=== PATIENT | male | born 1985 | race Caucasian/White ===

== ENCOUNTER 2023-10-27 19:09 | Inpatient (IN) | payer MEDICAID, OTHER ==
[~2023-10-27] VITALS: Ht 185.4 cm; Wt 119.0 kg
[2023-10-27 20:31] LABS: Basophils # (auto) 0.1 10 ^3/uL (0-0.2); Basophils % (auto) 0.6 % (0.0-2.0); Eosinophils # (auto) 0.1 10 ^3/uL (0-0.8); Eosinophils % (auto) 0.8 % (0.0-7.0); Hematocrit 42.9 % (41.0-53.0); Hemoglobin 14.3 g/dL (13.5-17.5); Lymphocytes # (auto) 3.2 10 ^3/uL (0.4-5.4); Lymphocytes % (auto) 29.6 % (10.0-50.0); Mean Corpuscular Hemoglobin 30.6 pg (28.0-32.0); Mean Corpuscular Hgb Conc. 33.4 g/dL (32.0-36.0); Mean Corpuscular Volume 91.5 fL (80.0-100.0); Monocytes % (auto) 9.2 % (0.0-12.0); Neutrophils # (auto) 6.5 10 ^3/uL (1.6-8.6); Neutrophils % (auto) 59.8 % (37.0-80.0); Nucleated Red Blood Cells % 0.1 %; Red Blood Cells 4.69 10^6/uL (4.5-5.90); Red Cell Distribution Width 15.3 % (11.8-14.3); White Blood Cell 10.9 10^3/uL (4.4-10.8)
[2023-10-27 20:54] LABS: Alanine Aminotransferase 15 U/L (7-40); Albumin 4.4 g/dL (3.2-4.8); Alkaline Phosphatase 96 U/L (46-116); Anion Gap 9 (5-15); Aspartate Aminotransferase 17 U/L (13-40); BUN/Creatinine Ratio 11.4 (10.0-20.0); Blood Urea Nitrogen 13 mg/dL (9-23); Calcium 9.2 mg/dL (8.5-10.1); Carbon Dioxide 26 mmol/L (20-30); Chloride 104 mmol/L (98-107); Glucose 110 mg/dL (74-106); Potassium 3.4 mmol/L (3.5-5.1); Sodium 139 mmol/L (136-145)
[2023-10-27 20:55] LABS: Bilirubin, Total 1.3 mg/dL (0.2-1.0); Total Protein 7.3 g/dL (5.7-8.2)
[2023-10-27 20:59] LABS: INR 1.06 (0.9-1.15); Partial Thromboplastin Time 27.3 SEC (24.5-34.5); Prothrombin Time 11.1 sec (9.3-11.8)
[2023-10-27] MEDS ORDERED: FUROSEMIDE 100 MG/10ML VIAL IM ONE (21:00)
[2023-10-28] VITALS (9 sets, daily range): BP systolic 91–117; BP diastolic 48–76; PULSE 65–113; RESP 16–21; TEMP 36.3; O2SAT 91–98
[2023-10-28] MEDS ORDERED: FUROSEMIDE 100 MG/10ML VIAL IV ONE
[2023-10-28] MEDS: FUROSEMIDE 40 MG/4 ML VIAL IV ONE (00:52)
[2023-10-28] MEDS ORDERED: TEMAZEPAM 15 MG CAP PO PRN (01:00)
[2023-10-28] MEDS ORDERED: MORPHINE SULFATE INJ 2 MG/ml SYRG IV PRN (01:00)
[2023-10-28] MEDS ORDERED: ONDANSETRON HCL 4 MG/2 ML VIAL IV PRN (01:00)
[2023-10-28] MEDS ORDERED: NITROGLYCERIN 0.4 MG SL TAB SL PRN (01:00)
[2023-10-28] MEDS: POTASSIUM CHL 20 Meq TABLET PO ONE (01:11)
[2023-10-28 01:47] LABS: Urine Bacteria NONE SEEN /hpf (None Seen); Urine Blood Negative /uL (Negative); Urine Clarity Clear (Clear); Urine Color Yellow (Yellow); Urine Mucus FEW (None Seen); Urine Protein, UAD Negative (Negative); Urine Specific Gravity 1.017 (1.001-1.035); Urine Urobilinogen Normal (Negative); Urine WBC 1 /hpf (0 - 3); Urine pH 5.5 (5.0-8.0)
[2023-10-28] MEDS ORDERED: FURO40TA4 PO (03:13)
[2023-10-28] MEDS: FUROSEMIDE 20 MG/2 ML VIAL IV SCH (06:42)
[2023-10-28 07:44] LABS: Amphetamine Screen, Urine Pos (NEGATIVE); Barbiturate Scree,Urine Neg (NEGATIVE); Benzodiazephine Screen, Urine Neg (NEGATIVE); Cocaine Screen, Urine Neg (NEGATIVE); Opiate Scree,Urine Neg (NEGATIVE)
[2023-10-28 07:45] LABS: Cannabinoid Screen, Urine Neg (NEGATIVE); Phencyclidine Screen, Urine Neg (NEGATIVE)
[2023-10-28 09:13] LABS: Basophils # (auto) 0.1 10 ^3/uL (0-0.2); Basophils % (auto) 0.8 % (0.0-2.0); Eosinophils # (auto) 0.2 10 ^3/uL (0-0.8); Eosinophils % (auto) 1.9 % (0.0-7.0); Hematocrit 43.4 % (41.0-53.0); Hemoglobin 14.2 g/dL (13.5-17.5); Lymphocytes # (auto) 2.2 10 ^3/uL (0.4-5.4); Lymphocytes % (auto) 26.8 % (10.0-50.0); Mean Corpuscular Hemoglobin 30.8 pg (28.0-32.0); Mean Corpuscular Hgb Conc. 32.6 g/dL (32.0-36.0); Mean Corpuscular Volume 94.4 fL (80.0-100.0); Monocytes # (auto) 0.6 10 ^3/uL (0-1.3); Neutrophils # (auto) 5.2 10 ^3/uL (1.6-8.6); Neutrophils % (auto) 63.5 % (37.0-80.0); Nucleated Red Blood Cells % 0.1 %; Red Cell Distribution Width 15.3 % (11.8-14.3); White Blood Cell 8.1 10^3/uL (4.4-10.8)
[2023-10-28 09:26] LABS: Anion Gap 6 (5-15); Carbon Dioxide 29 mmol/L (20-30); Chloride 105 mmol/L (98-107); Potassium 4.7 mmol/L (3.5-5.1); Sodium 140 mmol/L (136-145)
[2023-10-28 09:27] LABS: Calcium 9.3 mg/dL (8.5-10.1)
[2023-10-28 09:32] LABS: BUN/Creatinine Ratio 10.7 (10.0-20.0); Blood Urea Nitrogen 12 mg/dL (9-23); Glucose 182 mg/dL (74-106); Triglycerides 128 mg/dL (< 150)
[2023-10-28 09:33] LABS: LDL Cholesterol 109 mg/dL (< 100)
[2023-10-28 09:34] LABS: Cholesterol 152 mg/dL (< 200); HDL Cholesterol 34 mg/dL (40-59)
[2023-10-28] MEDS: SPIRONOLACTONE 25 MG TAB PO SCH (10:10)
[2023-10-28 10:21] LABS: Magnesium 2.2 mg/dL (1.6-2.6)
[2023-10-28] MEDS ORDERED: SPIR25TA8 PO (10:46)
[2023-10-28 11:19] LABS: COVID19 ANTIGEN SOFIA FIA NEGATIVE (NEGATIVE)
[2023-10-28 11:20] LABS: Rapid Influenza A Negative (Negative); Rapid Influenza B Negative (Negative)
== END 2023-10-28 21:51 | disposition left against medical advice (07) | DRG 133 ==
LOC: ER 19:09 → TELE 10-28 00:55 → TELE-CENTR 10-28 00:55
PROVIDERS: ADMIT Nurse Practitioner; ATTEND Family Medicine
DX: J96.01 Acute respiratory failure with hypoxia (principal); I21.A1 Myocardial infarction type 2; I50.23 Acute on chronic systolic (congestive) heart failure; I42.7 Cardiomyopathy due to drug and external agent; I11.0 Hypertensive heart disease with heart failure; F15.10 Other stimulant abuse, uncomplicated; E87.6 Hypokalemia; T50.2X6A Underdosing of carbonic-anhydrase inhibitors, benzothiadiazides and other diuretics, initial encounter; Z20.822 Contact with and (suspected) exposure to COVID-19; T50.995A Adverse effect of other drugs, medicaments and biological substances, initial encounter; Y92.098 Other place in other non-institutional residence as the place of occurrence of the external cause; Z71.51 Drug abuse counseling and surveillance of drug abuser; Z87.891 Personal history of nicotine dependence; Z71.6 Tobacco abuse counseling; Z53.29 Procedure and treatment not carried out because of patient's decision for other reasons; Z79.899 Other long term (current) drug therapy; Z90.49 Acquired absence of other specified parts of digestive tract; I08.8 Other rheumatic multiple valve diseases
CPT/HCPCS: 36415; 71045; 80048; 80053; 80061; 80307; 81001; 83036; 83735; 83880; 84443; 84484; 85025; 85379; 85610; 85730; 87081; 87426; 87804; 93306; 93971; 96374; G0378

== ENCOUNTER 2024-07-13 18:20 | Inpatient (IN) | payer OTHER ==
[~2024-07-13] VITALS: Ht 182.9 cm; Wt 122.8 kg
[~2024-07-13 18:20] MED LIST: FURO40TA4 PO; SPIR25TA8 PO
--- NOTE | 2024-07-13 18:30 | ED.PDOC ---
History of Present Illness HPI Comments 39-year-old male with PMHX CHF presents with a chief complaint of chest pain x 45 minutes with associated nausea and vomiting. Patient states that his chest pain is localized to his sternal region, radiating to his upper back and rates his pain an 8/10. Patient mentions that he was just recently diagnosed with CHF. Patient denies any SOB at this time. No active vomiting in triage. No other symptoms or modifying factors present at this time. Chief Complaint: Chest Pain Time Seen by MD: 18:25 Primary Care Provider: RENZO Reviewed Notes: Medications, Allergies Allergies: Coded Allergies: NO KNOWN ALLERGIES (Unverified , 09/13/11) Home Meds Reported Medications Spironolactone (Spironolactone) 25 Mg Tab, 12.5 MG PO DAILY 10/28/23 Furosemide (Furosemide) 40 Mg Tab, 1 TAB PO BID 10/28/23 Information Source: Patient Mode of Arrival: Ambulatory Severity: Moderate Timing: Minutes Duration: Since onset Prehospital treatment: None Past Medical History PAST MEDICAL HISTORY: CHF Surgical History: Cholecystectomy Family History Family History: Unknown Social History Smoker: Cigarettes Alcohol: Denies ETOH Use Drugs: Denies Drug Use Lives In: Home Constitutional: denies: chills, diaphoresis, fatigue, fever, malaise, sweats, weakness, others EENTM: denies: blurred vision, double vision, ear bleeding, ear discharge, ear drainage, ear pain, ear ringing, eye pain, eye redness, hearing loss, mouth pain, mouth swelling, nasal discharge, nose bleeding, nose congestion, nose pain, photophobia, tearing, throat pain, throat swelling, voice changes, others Respiratory: denies: cough, hemoptysis, orthopnea, SOB at rest, shortness of breath, SOB with excertion, stridor, wheezing, others Cardiovascular: reports: chest pain; denies: dizzy spells, diaphoresis, Dyspnea on exertion, edema, irregular heart beat, left arm pain, lightheadedness, palpitations, PND, syncope, others Gastrointestinal: reports: nausea, vomiting; denies: abdomen distended, abdominal pain, blood streaked bowels, constipated, diarrhea, dysphagia, difficulty swallowing, hematemesis, melena, poor appetite, poor fluid intake, rectal bleeding, rectal pain, others Genitourinary: denies: burning, dysuria, flank pain, frequency, hematuria, incontinence, penile discharge, penile sore, pain, testicle pain, testicle swelling, urgency, others Neurological: denies: dizziness, fainting, headache, left sided numbness, left sided weakness, numbness, paresthesia, pre-existing deficit, right sided numbness, right sided weakness, seizure, speech problems, tingling, tremors, weakness, others Musculoskeletal: denies: back pain, gout, joint pain, joint swelling, muscle pain, muscle stiffness, neck pain, others Integumetry: denies: bruises, change in color, change in hair/nails, dryness, laceration, lesions, lumps, rash, wounds, others Allergic/Immunocompromised: denies: Difficulty Healing, Frequent Infections, Hives, Itching, others Hematologic/Lymphatic: denies: anemia, blood clots, easy bleeding, easy b ruising, swollen glands, others Endocrine: denies: excessive hunger, excessive sweating, excessive thirst, excessive urination, flushing, intolerance to cold, intolerance to heat, unexplained weight gain, unexplained weight loss, others Psychiatric: denies: anxiety, bipolar disorder, depression, hopeless, panic disorder, schizophrenia, sleepless, suicidal, others All Other Systems: Reviewed and Negative Physical Exam General Appearance: No Apparent Distress, Normal HEENT: Normal ENT Inspection, Pharynx Normal, TMs Normal Neck: Full Range of Motion, Non-Tender, Normal, Normal Inspection Respiratory: Chest Non-Tender, Lungs Clear, No Accessory Muscle Use, No Respiratory Distress, Normal Breath Sounds Cardiovascular: No Edema, No JVD, No Murmur, No Gallop, Normal Peripheral Pulses, Regular Rate/Rhythm Breast Exam: Deferred Gastrointestinal: No Organomegaly, Non Tender, No Pulsatile Mass, Normal Bowel Sounds, Soft Genitalia: Deferred Pelvic: Deferred Rectal: Deferred Extremities: No calf tenderness, Normal capillary refill, Normal inspection, Normal range of motion, Non-tender, No pedal edema Musculoskeletal : Apperance: Normal 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 Was a procedure done?: No Differential Dx Considerations may include: ACS, CVA, musculoskeletal strain, pneumonia, X-Ray, Labs, Meds, VS Vital Signs Date Time Temp Pulse Resp B/P (MAP) Pulse Ox O2 Delivery O2 Flow Rate FiO2 07/13/24 21:21 110 07/13/24 20:00 Nasal Cannula* 2 28 07/13/24 20:00 97.6 110 18 136/80 (98) 99 97.6 07/13/24 19:28 114 07/13/24 18:37 98.3 127 24 146/76 (99) 98 07/13/24 18:28 123 Lab Test 07/13/24 21:19 07/13/24 19:20 07/13/24 18:26 Range/Units Troponin I High Sensitivity 31 33 35 </=54 ng/L White Blood Count 6.5 4.4-10.8 10^3/uL Red Blood Count 4.56 4.5-5.90 10^6/uL Hemoglobin 11.6 L 13.5-17.5 g/dL Hematocrit 36.9 L 41.0-53.0 % Mean Corpuscular Volume 81.0 80.0-100.0 fL Mean Corpuscular Hemoglobin 25.4 L 28.0-32.0 pg Mean Corpuscular Hemoglobin Concent 31.3 L 32.0-36.0 g/dL Red Cell Distribution Width 21.5 H 11.8-14.3 % Platelet Count 261 140-450 10^3/uL Mean Platelet Volume 7.7 6.9-10.8 fL Neutrophils (%) (Auto) 64.4 37.0-80.0 % Lymphocytes (%) (Auto) 22.1 10.0-50.0 % Monocytes (%) (Auto) 11.9 0.0-12.0 % Eosinophils (%) (Auto) 0.9 0.0-7.0 % Basophils (%) (Auto) 0.7 0.0-2.0 % Neutrophils # (Auto) 4.2 1.6-8.6 10 ^3/uL Lymphocytes # (Auto) 1.4 0.4-5.4 10 ^3/uL Monocytes # (Auto) 0.8 0-1.3 10 ^3/uL Eosinophils # (Auto) 0.1 0-0.8 10 ^3/uL Basophils # (Auto) 0 0-0.2 10 ^3/uL Nucleated Red Blood Cells 0.2 % Sodium Level 137 136-145 mmol/L Potassium Level 3.4 L 3.5-5.1 mmol/L Chloride Level 98 98-107 mmol/L Carbon Dioxide Level 29 20-31 mmol/L Anion Gap 10 5-15 Blood Urea Nitrogen 8 L 9-23 mg/dL Creatinine 0.90 0.700-1.30 mg/dL Glomerular Filtration Rate Calc 111 >90 mL/min BUN/Creatinine Ratio 8.9 L 10.0-20.0 Serum Glucose 101 74-106 mg/dL Calcium Level 9.7 8.7-10.4 mg/dL Total Bilirubin 3.0 H 0.2-1.0 mg/dL Aspartate Amino Transferase (AST) 27 13-40 U/L Alanine Aminotransferase (ALT) 29 7-40 U/L Alkaline Phosphatase 130 H 46-116 U/L Total Protein 7.2 5.7-8.2 g/dL Albumin 3.9 3.2-4.8 g/dL Current Medications Medications (Trade) Dose Ordered Sig/Anat Route Start Time Stop Time Status Last Admin Lorazepam (Ativan Tablet) 0.5 mg ONCE ONCE PO 07/13/24 18:30 07/13/24 18:31 DC 07/13/24 20:06 Ondansetron HCl (Zofran Po) 4 mg ONCE ONCE PO 07/13/24 18:30 07/13/24 18:31 DC 07/13/24 20:05 Famotidine (Pepcid Tablet) 20 mg ONCE ONCE PO 07/13/24 18:30 07/13/24 18:31 DC 07/13/24 20:05 Time of 1ST Reevaluation: 18:55 Reevaluation 1ST: Unchanged Patient Education/Counseling: Diagnosis, Treatment, Prognosis Family Education/Counseling: No Family Present Departure 1 Departure Time of Disposition: 23:31 (Patient presented with chest pain that was concerning for possible STEMI, ACS, PE, Pneumonia, Muscle Strain, COPD, Dissection. Data: 1. I ordered and reviewed the result of at least 3 labs including a CBC, BMP, and Troponin. 2. I independently interpreted the following tests: EKG which shows sinus tachycardia and Chest X-ray which shows benign chest.Risk:This patient has a high risk of morbidity due to further diagnostic testing or treatment and may suffer from an acute cardiac or respiratory disorder. Workup reveals concern for acs and patient should be admitted for further workup and possible expert consultation. ) Impression: Primary Impression: Acute chest pain Additional Impressions: Nausea and vomiting Qualified Codes: R11.12 - Projectile vomiting Polysubstance abuse Disposition: 09 ADMITTED INPATIENT Admit to: Med Surg Condition: Serious Critical Care Note Critical Care Time?: Yes Critical care comment: Acute chest pain Authorized and Performed by: Caden Caldwell MD Total critical care time: Approximately 38 minutes Due to a high probability of clinically significant, life threatening deterioration, the patient required my highest level of preparedness to intervene emergently and I personally spent this critical care time directly and personally managing the patient. This critical care time included obtaining a history; examining the patient; pulse oximetry; ordering and review of studies; arranging urgent treatment with development of a management plan; evaluation of patient's response to treatment; frequent reassessment; and, discussions with other providers. This critical care time was performed to assess and manage the high probability of imminent, life-threatening deterioration that could result in multi-organ failure. It was exclusive of separately billable procedures and treating other patients and teaching time. Please see my other sections and the rest of the note for further information on patient assessment and treatment. Stability Stability form required: No Heart Score Heart Score: Heart Score Response (Comments) Value History Moderate Suspicious 1 EKG Repolarization Disturb 1 Age <45 0 Risk Factors 1 or 2 risk factors 1 Troponin 1-2 x's Normal limit 1 Total 4 I personally scribed for CADEN CALDWELL MD ([email or web address]) on 07/13/24 at 18:30. Electronically submitted by Marquise Gonzalez ([email or web address]). CADEN CALDWELL MD Jul 13, 2024 18:30
[2024-07-13 18:58] LABS: Basophils # (auto) 0 10 ^3/uL (0-0.2); Basophils % (auto) 0.7 % (0.0-2.0); Eosinophils # (auto) 0.1 10 ^3/uL (0-0.8); Eosinophils % (auto) 0.9 % (0.0-7.0); Hematocrit 36.9 % (41.0-53.0); Hemoglobin 11.6 g/dL (13.5-17.5); Lymphocytes # (auto) 1.4 10 ^3/uL (0.4-5.4); Lymphocytes % (auto) 22.1 % (10.0-50.0); Mean Corpuscular Hemoglobin 25.4 pg (28.0-32.0); Mean Corpuscular Hgb Conc. 31.3 g/dL (32.0-36.0); Monocytes # (auto) 0.8 10 ^3/uL (0-1.3); Monocytes % (auto) 11.9 % (0.0-12.0); Neutrophils # (auto) 4.2 10 ^3/uL (1.6-8.6); Neutrophils % (auto) 64.4 % (37.0-80.0); Nucleated Red Blood Cells % 0.2 %; Platelet Count (auto) 261 10^3/uL (140-450); Red Blood Cells 4.56 10^6/uL (4.5-5.90); White Blood Cell 6.5 10^3/uL (4.4-10.8)
[2024-07-13 19:01] LABS: Red Cell Distribution Width 21.5 % (11.8-14.3)
[2024-07-13 19:09] LABS: Alanine Aminotransferase 29 U/L (7-40); Albumin 3.9 g/dL (3.2-4.8); Anion Gap 10 (5-15); Aspartate Aminotransferase 27 U/L (13-40); BUN/Creatinine Ratio 8.9 (10.0-20.0); Calcium 9.7 mg/dL (8.7-10.4); Carbon Dioxide 29 mmol/L (20-31); Chloride 98 mmol/L (98-107); Glucose 101 mg/dL (74-106); Sodium 137 mmol/L (136-145)
[2024-07-13 19:10] LABS: Total Protein 7.2 g/dL (5.7-8.2)
[2024-07-13 19:16] LABS: Alkaline Phosphatase 130 U/L (46-116); Blood Urea Nitrogen 8 mg/dL (9-23); Potassium 3.4 mmol/L (3.5-5.1)
[2024-07-13] MEDS: FAMOTIDINE 20 MG TAB PO ONE (20:05)
[2024-07-13] MEDS: ONDANSETRON ODT 4 MG TAB PO ONE (20:05)
[2024-07-13] MEDS: LORazepam 0.5 MG TAB PO ONE (20:06)
--- NOTE | 2024-07-13 20:54 | DVH ---
CHEST RADIOGRAPH Indication: chest pain Technique: Frontal and lateral view of the chest was obtained Comparison: None FINDINGS: Lines and Tubes: None Lungs: Clear Pleura: No effusion. No pneumothorax. Cardiomediastinal contours: Mild cardiomegaly. Bones: Unremarkable IMPRESSION: No evidence of acute disease.
[2024-07-14] VITALS (8 sets, daily range): BP systolic 110–131; BP diastolic 66–90; PULSE 106–119; RESP 18–19; TEMP 97.4–98.1; O2SAT 94–100
--- NOTE | 2024-07-14 00:14 | DVHHP2 ---
History of Present Illness Reason for Visit: Chest pain History of Present Illness 39-year-old obese patient with a past medical history of CHF comes into the ED for evaluation of chest pain associated with nausea and vomiting described as sternal chest pain that radiates to the back patient has been having intractable pain states that his diagnosis of CHF was recently done patient at this point in time was evaluated in the ED and recommended for admission further evaluation Cardiovascular: CHF Review of Systems Constitutional: Yes: Weakness; No: Fever, Chills, Sweats, Malaise, Other Eyes: No: Pain, Vision change, Conjunctivae inflammation, Eyelid inflammation, Other, Redness ENT: No: Ear pain, Ear discharge, Nose pain, Nose discharge, Nose congestion, Mouth pain, Mouth swelling, Throat pain, Throat swelling, Other Respiratory: Cough, Dry, Shortness of breath; No: SOB with excertion, Wheezing, Hemoptysis, Pleuritic Pain, Sputum, Wheezing, Other Cardiovascular: Chest Pain, Palpitations, Orthopnea; No: Paroxysmal Noc. Dyspnea, Edema, Lt Headedness, Other Gastrointestinal: No: Nausea, Vomiting, Abdominal Pain, Diarrhea, Constipation, Melena, Hematochezia, Other Genitourinary: No Dysuria, No Frequency, No Incontinence, No Hematuria, No Retention, No Other Musculoskeletal: No: other, neck pain, shoulder pain, arm pain, back pain, hand pain, leg pain, foot pain Skin: No: Rash, Lesions, Jaundice, Bruising, Other Neurological: No: Weakness, Numbness, Incoordination, Change in speech, Conf usion, Seizures, Other Allergies: Coded Allergies: NO KNOWN ALLERGIES (Unverified , 09/13/11) Exam Vital Signs Vital Signs Date Time Temp Pulse Resp B/P (MAP) Pulse Ox O2 Delivery O2 Flow Rate FiO2 07/13/24 21:21 110 07/13/24 20:00 Nasal Cannula* 2 28 07/13/24 20:00 97.6 18 136/80 (98) 99 97.6 General Appearance: Alert, Oriented X3, Cooperative HEENT: Atraumatic, PERRLA Respiratory: Clear to auscultation, Normal air movement Cardiovascular: Regular rate, Normal S1, Normal S2 Abdominal: Normal bowel sounds, Soft, No tenderness Extremities: No cyanosis, No edema (Mild trace bilateral) Skin: No rashes, No breakdown Neuro: Normal gait, Normal speech Psych/Mental Status: Mood NL Labs/Xrays Labs Test 07/13/24 21:19 07/13/24 18:26 Range/Units Troponin I High Sensitivity 31 </=54 ng/L White Blood Count 6.5 4.4-10.8 10^3/uL Red Blood Count 4.56 4.5-5.90 10^6/uL Hemoglobin 11.6 L 13.5-17.5 g/dL Hematocrit 36.9 L 41.0-53.0 % Mean Corpuscular Volume 81.0 80.0-100.0 fL Mean Corpuscular Hemoglobin 25.4 L 28.0-32.0 pg Mean Corpuscular Hemoglobin Concent 31.3 L 32.0-36.0 g/dL Red Cell Distribution Width 21.5 H 11.8-14.3 % Platelet Count 261 140-450 10^3/uL Mean Platelet Volume 7.7 6.9-10.8 fL Neutrophils (%) (Auto) 64.4 37.0-80.0 % Lymphocytes (%) (Auto) 22.1 10.0-50.0 % Monocytes (%) (Auto) 11.9 0.0-12.0 % Eosinophils (%) (Auto) 0.9 0.0-7.0 % Basophils (%) (Auto) 0.7 0.0-2.0 % Neutrophils # (Auto) 4.2 1.6-8.6 10 ^3/uL Lymphocytes # (Auto) 1.4 0.4-5.4 10 ^3/uL Monocytes # (Auto) 0.8 0-1.3 10 ^3/uL Eosinophils # (Auto) 0.1 0-0.8 10 ^3/uL Basophils # (Auto) 0 0-0.2 10 ^3/uL Nucleated Red Blood Cells 0.2 % Sodium Level 137 136-145 mmol/L Potassium Level 3.4 L 3.5-5.1 mmol/L Chloride Level 98 98-107 mmol/L Carbon Dioxide Level 29 20-31 mmol/L Anion Gap 10 5-15 Blood Urea Nitrogen 8 L 9-23 mg/dL Creatinine 0.90 0.700-1.30 mg/dL Glomerular Filtration Rate Calc 111 >90 mL/min BUN/Creatinine Ratio 8.9 L 10.0-20.0 Serum Glucose 101 74-106 mg/dL Calcium Level 9.7 8.7-10.4 mg/dL Total Bilirubin 3.0 H 0.2-1.0 mg/dL Aspartate Amino Transferase (AST) 27 13-40 U/L Alanine Aminotransferase (ALT) 29 7-40 U/L Alkaline Phosphatase 130 H 46-116 U/L Total Protein 7.2 5.7-8.2 g/dL Albumin 3.9 3.2-4.8 g/dL Assessment/Plan Assessment/Plan Admit to [facility] Chest pain rule out ACS Newly diagnosed CHF unconfirmed status Continue with patient's home medications spironolactone 25 mg Lasix will be given 40 mg IV over p.o. We will follow with chest pain protocol Patient with a stated history of polysubstance abuse we will monitor for signs of acute withdrawal Chose x3 were completed and negative Possible that chest pain is associated with drug abuse Plan discussed with: Patient My Orders Orders - KEVIN HATCH MD Procedure Category Date Status Time Admit ADMIT 07/14/24 Transmitted 00:01 Code Status CODE 07/14/24 Transmitted 00:01 Cardiac DIET 07/14/24 Transmitted Diet-2gna,Lofat,Lochol Breakfast Aspirin Tablet PHA 07/14/24 In Process 10:00 Aspirin Tablet PHA 07/14/24 In Process 00:15 Atorvastatin (Lipitor) PHA 07/14/24 In Process 22:00 Metoprolol Tartrate PHA 07/14/24 In Process Tablet (Lopressor Ta 10:00 Acetaminophen Tablet PHA 07/14/24 In Process (Tylenol Tablet) 00:15 Zolpidem Tartrate PHA 07/14/24 In Process (Ambien) 00:15 Lorazepam Tablet PHA 07/14/24 In Process (Ativan Tablet) 00:15 Docusate Sodium PHA 07/14/24 In Process Capsule (Colace 10:00 Complete Blood Count LAB 07/14/24 Logged 04:00 Basic Metabolic Panel LAB 07/14/24 Logged 04:00 Ondansetron Hcl PHA 07/14/24 In Process (Zofran) 00:15 Electrocardigram EKG 07/14/24 Logged 00:01 Alum & Mag PHA 07/14/24 In Process Hydrox-Simethicone 00:15 Troponin-I Hs LAB 07/14/24 Logged 00:01 Lisinopril Tablet PHA 07/14/24 In Process (Zestril Tablet) 10:00 Cardiac MARLEEN 07/14/24 In Process Rehabilitation - Outpa Nitroglycerin PHA 07/14/24 In Process Sublingual (Ntrostat 00:15 Morphine Sulfate PHA 07/14/24 In Process Injection 00:15 Stat Ekg For Chest MARLEEN 07/14/24 In Process Pain 00:01 Notify Md Of Changes [facility] 07/14/24 In Process From Base 00:01 Emergency Dysrhythmia [facility] 07/14/24 In Process Protocol 00:01 Rhythm Strips Once [facility] 07/14/24 In Process Every Shift 00:01 Oxygen By Nasal RT 07/14/24 Transmitted Cannula 00:01 Pantoprazole Tablet [facility] 07/14/24 In Process (Protonix Tablet) 10:00 Urinalysis LAB 07/14/24 Logged 00:01 Drug Screen LAB 07/14/24 Logged 00:01 Problem List: (1) Polysubstance abuse (2) Acute chest pain (3) Nausea and vomiting (4) Acute hypoxic respiratory failure (5) CHF exacerbation Date of Service: Jul 14, 2024 Billing Provider: KEVIN HATCH MD Common Visit Codes: [id number] INP/OBS CARE (HIGH) KEVIN HATCH MD Jul 14, 2024 00:14
[2024-07-14] MEDS ORDERED: NITROGLYCERIN 0.4 MG SL TAB SL PRN ×2 (00:15)
[2024-07-14] MEDS ORDERED: ACETAMINOPHEN 325 MG TAB PO PRN (00:15)
[2024-07-14] MEDS ORDERED: MORPHINE SULFATE 4 MG/ML SYR/VIAL IV PRN (00:15)
[2024-07-14] MEDS: ASPirin 325 MG TAB PO ONE (00:47)
[2024-07-14] MEDS: ONDANSETRON HCL 4 MG/2 ML VIAL IV PRN ×2 (04:08→18:37)
[2024-07-14] MEDS: MORPHINE SULFATE INJ 2 MG/ml SYRG IV PRN ×3 (04:09→18:38)
[2024-07-14] MEDS: LORazepam 0.5 MG TAB PO PRN (05:47)
[2024-07-14 05:55] LABS: Basophils # (auto) 0 10 ^3/uL (0-0.2); Basophils % (auto) 0.6 % (0.0-2.0); Eosinophils # (auto) 0 10 ^3/uL (0-0.8); Eosinophils % (auto) 0.9 % (0.0-7.0); Hematocrit 35.5 % (41.0-53.0); Hemoglobin 11.2 g/dL (13.5-17.5); Lymphocytes # (auto) 1.1 10 ^3/uL (0.4-5.4); Lymphocytes % (auto) 20.1 % (10.0-50.0); Mean Corpuscular Hemoglobin 25.4 pg (28.0-32.0); Mean Corpuscular Hgb Conc. 31.6 g/dL (32.0-36.0); Mean Corpuscular Volume 80.5 fL (80.0-100.0); Monocytes # (auto) 0.6 10 ^3/uL (0-1.3); Monocytes % (auto) 10.7 % (0.0-12.0); Neutrophils # (auto) 3.5 10 ^3/uL (1.6-8.6); Neutrophils % (auto) 67.7 % (37.0-80.0); Nucleated Red Blood Cells % 0.2 %; Platelet Count (auto) 224 10^3/uL (140-450); Red Cell Distribution Width 21.2 % (11.8-14.3); White Blood Cell 5.2 10^3/uL (4.4-10.8)
[2024-07-14 06:06] LABS: Chloride 98 mmol/L (98-107); Sodium 140 mmol/L (136-145)
[2024-07-14 06:07] LABS: Anion Gap 12 (5-15); Calcium 9.6 mg/dL (8.7-10.4); Carbon Dioxide 30 mmol/L (20-31)
[2024-07-14 06:12] LABS: Glucose 97 mg/dL (74-106)
[2024-07-14 06:13] LABS: BUN/Creatinine Ratio 7.5 (10.0-20.0)
[2024-07-14 06:33] LABS: Blood Urea Nitrogen 6 mg/dL (9-23); Potassium 2.8 mmol/L (3.5-5.1)
--- NOTE | 2024-07-14 06:43 | ECG ---
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
--- NOTE | 2024-07-14 06:45 | ECG ---
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
[2024-07-14] MEDS: ASPirin 81 mg TAB PO SCH (09:41)
[2024-07-14] MEDS: B-COMPLEX W/ C & FOLIC ACID(NEPHROVITE TAB) PO SCH (09:41)
[2024-07-14] MEDS: MULTIPLE VITAMINS W/ MINERALS TAB PO SCH (09:41)
[2024-07-14] MEDS: DOCUSATE SOD 100 MG CAP PO SCH (09:42)
[2024-07-14] MEDS: LISINOPRIL 5 MG TAB PO SCH (09:43)
[2024-07-14] MEDS: PANTOPRAZOLE 40 MG TAB PO SCH (09:43)
[2024-07-14] MEDS: METOPROLOL TARTRATE 25 MG TAB PO SCH (09:44)
[2024-07-14] MEDS: BUMETANIDE 2.5mg/10ml (0.25 mg/ml) INJ IV SCH (09:44)
[2024-07-14] MEDS: POTASSIUM CHLORIDE 80 MEQ, LIDOCAINE 1% (LOCAL ANESTH.) 6 ML in SODIUM CHL 0.9% 500 ML IV ONE (09:50)
[2024-07-14] MEDS ORDERED: FUROSEMIDE 40 MG/4 ML VIAL IV SCH (10:00)
[2024-07-14] MEDS: ONDANSETRON ODT 4 MG TAB PO PRN (10:09)
--- NOTE | 2024-07-14 10:22 | DVH ---
BILATERAL LOWER EXTREMITY VENOUS DOPPLER CLINICAL HISTORY: swollen left leg Technique: Duplex Doppler evaluation of the deep venous systems of both lower extremities from the co mmon femoral veins to the popliteal veins including color Doppler and spectral/pulsed waveform analys is was performed. COMPARISON: US LT LOWER DVT on DOS: 10/27/23 FINDINGS: The right and left common femoral, superficial femoral, popliteal, posterior tibial and peroneal vei ns appear patent with normal augmentation, phasicity, compressibility and color-flow. The right saphe nous vein surgically absent. IMPRESSION: 1. There is no sonographic evidence for DVT in the lower extremities. HS:Y
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
[2024-07-14 11:33] LABS: % Iron Saturation 7.5 % (20-55)
[2024-07-14] MEDS: ceFAZolin 1GM/50ML 50 ML IV SCH (12:00)
--- NOTE | 2024-07-14 12:19 | DVH ---
Date: 07/14/2024 11:47 AM Examination: XY KUB ABDOMEN SINGLE VIEW History: abdominal distention Comparison: None TECHNIQUE: Frontal views of the abdomen was obtained. FINDINGS: Bowel gas pattern is unremarkable. The lung bases are unremarkable. No acute osseous abnormality identified. IMPRESSION: Nonobstructive bowel gas pattern.
[2024-07-14 12:48] LABS: Urine Bacteria None Seen /hpf (None Seen); Urine Blood Negative /uL (Negative); Urine Clarity Clear (Clear); Urine Color Yellow (Yellow); Urine Hyaline Cast MOD /lpf (0 - 2); Urine Mucus FEW (None Seen); Urine Protein, UAD 1+ (Negative); Urine Specific Gravity 1.014 (1.001-1.035); Urine Urobilinogen 6 mg/dL (Negative); Urine WBC 2 /hpf (0 - 3)
[2024-07-14 13:04] LABS: Amphetamine Screen, Urine Pos (NEGATIVE); Barbiturate Scree,Urine Neg (NEGATIVE); Benzodiazephine Screen, Urine Pos (NEGATIVE); Cocaine Screen, Urine Neg (NEGATIVE); Opiate Scree,Urine Neg (NEGATIVE); Phencyclidine Screen, Urine Neg (NEGATIVE)
[2024-07-14 13:05] LABS: Cannabinoid Screen, Urine Pos (NEGATIVE)
--- NOTE | 2024-07-14 13:07 | DVHSR ---
APPROVED REPORT EXAM: Two-dimensional and M-mode echocardiogram with Doppler and color Doppler. Blood Pressure: 110/66 mmHg INDICATION SOB Worsening Heart Failure DIMENSIONS LVDd6.8 (3.8-5.7cm)LA (2D)4.5 (1.9-4.0cm)Aortic Root3.4 (2.0-3.7cm) LVDs6.7 (2.5-4.0cm)LA (MM) (1.9-4.0cm)Aortic Cusp Exc1.6 (1.5-2.0cm) EF (%) 5.0 (55-70%)Rt. Atrium5.1 (1.9-4.0cm)Asc. Aorta cm IVSd1.2 (0.7-1.1cm)RV (D) (1.8-2.4cm) PWd1.1 (0.7-1.1cm) Mitral Valve MitralMitral Stenosis E wave0.90m/sMV Mean GR.mmHg A wave0.50m/sMV Peak GR.mmHg E/A ratio1.82D MVAcm2 Aortic Valve Aortic ValveAortic Stenosis V10.40m/Brandi Mean GR.1mmHg V20.60m/Brandi Peak GR.2mmHg LVOT Diameter2.2 (1.8-2.4cm)Doppler AVA2.53cm2 Pulmonic Valve V20.30m/s Tricuspid Valve TR Velocity2.50m/s [id number] Conclusion Severely dilated left ventricle. Severely reduced left ventricular systolic function estimated eject ion fraction of 10%. There is global wall akinesia. In the left ventricular cavity there is a small echodense structure oval in shape measuring 2 x1 mm likely representing an LV thrombus. Severely reduced right ventricular systolic function. Severely dilated right and left atria. The aortic valve appears normal in structure and function. There is severe mitral valve regurgitation with a eccentric jet directed towards the posterior wall o f the left atrium. There is moderate to severe tricuspid valve regurgitation. The pulmonary valve is grossly normal. No significant pericardial effusion.
[2024-07-14] MEDS: KETOROLAC TROMETH 30 MG/ML 1ML VIAL IV ONE (13:38)
[2024-07-14] MEDS: ONDANSETRON HCL 4 MG/2 ML VIAL IV ONE (13:39)
[2024-07-14] MEDS ORDERED: KETOROLAC TROMETH 30 MG/ML 1ML VIAL IV SCH (18:00)
--- NOTE | 2024-07-14 18:03 | DVH ---
Exam: CT CT AB PEL WO CON-NO ORAL OR IV History: PERSISTENT NAUSEA Comparison Study: None available at time of dictation. TECHNIQUE: Multidetector CT of the abdomen was performed from lung bases to pubic symphysis. Imaging was performed without IV contrast. Axial, coronal and sagittal multiplanar reformats were obtained fr om the axial data set by the technologist. Radiation Dose Information: CT Dose: CTDI volume is 24.14 mGy. Dose-length product is 1316.14 mGy*cm FINDINGS: Evaluation of solid organs is limited due to lack of intravenous contrast use. Findings: Lung Bases: No acute or significant lung base finding. Normal heart size. Trace bilateral pleural ef fusions. Liver: Some nodular appearance to the surface of the liver with moderate ascites around the liver and spleen and in both pericolic gutters. Gallbladder and Biliary Tree: Gallbladder has been surgically removed. Spleen: Unremarkable Pancreas: The pancreas is grossly normal in appearance. Adrenal Glands: Unremarkable Kidneys: Kidneys are grossly normal without calculi or hydronephrosis. Bladder: Grossly unremarkable for degree of distention. Bowel: The stomach is grossly normal in appearance. Small bowel and colon are normal in caliber and d istribution. The appendix is not visualized; however, no secondary findings of acute appendicitis id entified. Ascites: Moderate amount of ascites around the liver and spleen in both pericolic gutters and in the pelvis. Lymphadenopathy: No mesenteric, retroperitoneal or periportal lymphadenopathy. Abdominal Wall and Mesentery: Edema in the subcutaneous tissues of the abdomen bilaterally consistent with anasarca. Vasculature: The visualized abdominal aorta is normal in size and caliber. Evaluation of abdominal a nd pelvic vessels is limited due to lack of intravenous contrast. Pelvic Organs: Unremarkable Musculoskeletal: No aggressive focal bony lesions, acute fractures or dislocation. Soft tissues: Unremarkable IMPRESSION: 1. Trace bilateral pleural effusions. 2. Moderate amount of ascites around the liver spleen in the pericolic gutters bilaterally and in the pelvis. 3. Findings of anasarca. 4. Somewhat nodular appearance to the surface of the liver. 5. Gallbladder has been surgically removed. 6. No findings of bowel obstruction. Radiation optimization: All CT scans at this facility use at least one of these dose optimization brent hniques: automated exposure control mA and/or kV adjustment per patient size (includes targeted exam s where dose is matched to clinical indication) or iterative reconstruction.
[2024-07-14 18:14] LABS: Hemoglobin 11.4 g/dL (13.5-17.5)
[2024-07-14 18:17] LABS: Hematocrit 36.2 % (41.0-53.0)
[2024-07-14] MEDS: PANTOPRAZOLE 40 MG/10 ML VIAL INJ IV SCH (21:10)
[2024-07-14] MEDS: ATORVASTATIN 20 MG TAB PO SCH (21:13)
[2024-07-14] MEDS: ZOLPIDEM TARTRATE 5 MG TAB PO PRN (22:31)
[2024-07-14] MEDS: ENOXAPARIN SOD 40 MG/0.4 ML SYRINGE SC ONE (22:36)
[2024-07-15] VITALS (8 sets, daily range): BP systolic 99–123; BP diastolic 44–80; PULSE 80–114; RESP 14–18; TEMP 97.4–98.9; O2SAT 92–98
[2024-07-15 00:17] LABS: COVID19 ANTIGEN SOFIA FIA NEGATIVE (NEGATIVE)
[2024-07-15] MEDS: ENOXAPARIN SOD 40 MG/0.4 ML SYRINGE SC SCH (08:55)
[2024-07-15] MEDS: SPIRONOLACTONE 25 MG TAB PO SCH (08:57)
[2024-07-15] MEDS: KETOROLAC TROMETH 30 MG/ML 1ML VIAL IV PRN (09:12)
[2024-07-15 09:25] LABS: Chloride 100 mmol/L (98-107); Potassium 3.7 mmol/L (3.5-5.1); Sodium 138 mmol/L (136-145)
[2024-07-15 09:26] LABS: Anion Gap 8 (5-15); Calcium 9.1 mg/dL (8.7-10.4); Carbon Dioxide 30 mmol/L (20-31)
[2024-07-15 09:31] LABS: BUN/Creatinine Ratio 8.8 (10.0-20.0); Blood Urea Nitrogen 9 mg/dL (9-23)
[2024-07-15 09:33] LABS: Glucose 111 mg/dL (74-106)
[2024-07-15 09:55] LABS: Hepatitis B Surface Antibody Positive (Negative)
[2024-07-15 11:26] LABS: Hepatitis B Surface Antigen Negative (Negative)
[2024-07-15] MEDS: MAALOX PLUS or MAALOX 30 ML PO PRN (11:35)
[2024-07-15 11:49] LABS: Hepatitis C Antibody Negative (Negative)
[2024-07-15] MEDS: ENOXAPARIN SOD 80 MG/0.8ML SYRINGE SC ONE (12:50)
--- NOTE | 2024-07-15 17:05 | DVHPNRES ---
Progress Note Date Seen: Jul 15, 2024 Resident Creating Document: ELOISE BLANCAS RESIDENT Medical Necessity Reason Pt with a Central, PICC or Fol: No Medical Necessity Reason chf exacerbation Subjective Review of Systems Patient is seen and examined today at the bedside Nausea and vomiting seems improved. Patient is on Zofran. He continues to complain of abdominal discomfort. Abdominal ultrasound yesterday revealed Moderate amount of ascites around the liver, spleen in the pericolic gutters bilaterally and in the pelvis. Somewhat nodular appearance to the surface of the liver. This still could be due to the CHF exacerbation. Patient's current ejection fraction is 10% patient was also positive for polysubstance use in his urine such as methamphetamine, benzodiazepine and cannabinoids Objective vital signs Vital Sign Date Time Temp Pulse Resp B/P (MAP) Pulse Ox O2 Delivery O2 Flow Rate FiO2 07/15/24 16:27 81 16 105/65 07/15/24 16:00 97.7 92 97.7 07/15/24 08:00 Nasal Cannula* 2 28 Total Intake and Output 07/14/24 07/14/24 07/15/24 15:00 23:00 07:00 Intake Total 522 ml 350 ml Output Total 200 ml 250 ml Balance 322 ml 100 ml medications Current Medications Medications Dose Ordered Sig/Anat Route Start Time Stop Time Status Last Admin Dose Admin Aspirin 81 mg DAILY PO 07/14/24 10:00 07/15/24 08:55 81 MG Atorvastatin Calcium 40 mg HS PO 07/14/24 22:00 Metoprolol Tartrate 12.5 mg Q12HR PO 07/14/24 10:00 07/15/24 08:58 12.5 MG Acetaminophen 650 mg Q6HP PRN PO 07/14/24 00:15 Zolpidem Tartrate 5 mg QHSP PRN PO 07/14/24 00:15 07/14/24 22:31 5 MG Lorazepam 0.5 mg Q6HP PRN PO 07/14/24 00:15 07/14/24 21:08 0.5 MG Docusate Sodium 100 mg DAILY PO 07/14/24 10:00 07/15/24 08:57 100 MG Al Hydrox/Mg Hydrox/Simethicone 30 ml Q6HPRN PRN PO 07/14/24 00:15 07/15/24 11:35 30 ML Lisinopril 10 mg DAILY PO 07/14/24 10:00 07/15/24 08:56 10 MG Nitroglycerin 0.4 mg Q5MINP PRN SL 07/14/24 00:15 Morphine Sulfate 2 mg Q30M PRN IV 07/14/24 00:15 07/14/24 04:09 2 MG Multivitamins/ Minerals 1 tab DAILY PO 07/14/24 10:00 07/15/24 08:57 1 TAB Multivit/Ca Carb/ B Cmplx/FA/Prenat 1 tab DAILY PO 07/14/24 10:00 07/15/24 08:56 1 TAB Ondansetron HCl 4 mg Q4HP PRN PO 07/14/24 08:45 07/14/24 10:09 4 MG Cefazolin Sodium 50 ml @ 100 mls/hr Q6HR IV 07/14/24 12:00 07/15/24 12:25 100 MLS/HR Pantoprazole Sodium 40 mg BID IV 07/14/24 22:00 07/15/24 08:55 40 MG Ondansetron HCl 4 mg Q6HPRN PRN IV 07/14/24 13:30 07/15/24 09:07 4 MG Ketorolac Tromethamine 15 mg Q6HPRN PRN IV 07/14/24 17:00 07/19/24 16:59 07/15/24 09:12 15 MG Prochlorperazine Edisylate 5 mg Q4HPRN PRN IV 07/14/24 17:00 Spironolactone 25 mg DAILY PO 07/15/24 10:00 07/15/24 08:57 25 MG Morphine Sulfate 1 mg Q4HP PRN IV 07/14/24 18:30 07/15/24 11:35 1 MG Enoxaparin Sodium 120 mg Q12HR SC 07/15/24 22:00 Bumetanide 3 mg BIDD IV 07/15/24 18:00 Examination General examination-Morbidly obese male, acute distress HEENT: PEERLA, no acute nasal discharge Chest: S1-S2 audible, rate and rhythm regular, no murmur Lung: CTAB, no wheeze or rhonchi Abdomen: Distend, BS+, tenderness, no organomegaly Musculoskeletal: left sided mid upper back pain Lower extremity: LT: red,demarcated, edema up to the edema; RT: 2+ edema, up to the knee Neurological: cranial nerves intact, no acute dysarthria or dysphagia Psychiatry-- Normal mood and affect Skin- no acute rash or purpura laboratory and microbiology Laboratory Tests 07/15/24 08:48 07/14/24 17:50 07/14/24 04:49 Test 07/15/24 08:48 Range/Units Serum Glucose 111 H 74-106 mg/dL Microbiology Date/Time Source Procedure Growth Status 07/14/24 10:37 Nose MRSA Screen - Final Complete Problem List/Assessment/Plan Problem List/Assessment/Plan Acute on chronic HFrEF --> previous echo: 20% 10/2023 --> Repeat echo : 07/2024: 10% --> Increased Bumex 3mg bid --> Continue spironolactone Sinus tachycardia --> monitor EKG Cellulitis left leg --> DVT ruled out --> Cefazolin --> left leg circumference: 16.5Measure the size of the left leg at each shift Left ventricular thrombus --> noted on Echo ( 07/14/2024) --->therapeutic Lovenox 1 milligram/kg ?Possible Gastroenteritis --> Moderate amount of ascites around the liver, spleen in the pericolic gutters bilaterally and in the pelvis. --> Anasarca. --> hepatitis C antibody negative --> Hepatis B core antibody pending Iron deficiency Anemia --> Iron panel --> hgb/hct: 11.6/33.2 --> H/HCT at 5pm today Morbid obesity --> BMI: 33.78 --> Not his dry weight Polysubstance abuse, last use was 4 days ago --> amphetamines --> benzodiazepine --> cannabinoids --> discussed the patient about detoxification hypokaelemia--> resolved --> K: 2.8 ( initial) --> replaced Bilateral pleural effusions Diet: full liquid diet zofran: IV q6hrs prn toradal: IV 15mg q6hrs Code status: Full code Goal of care discussed for more than 30 minutes Case and plan discussed with Dr. Fontana Plan discussed with: Patient My Orders My Orders Orders - ELOISE BLANCAS RESIDENT Procedure Category Date Status Time Morphine Sulfate PHA 07/14/24 In Process Injection 18:30 Hepatitis B Core LAB 07/15/24 In Process Total Antibod 08:20 Full Liq Diet DIET 07/15/24 Transmitted Lunch Enoxaparin Sodium PHA 07/15/24 In Process (Lovenox) 22:00 Bumetanide Injection PHA 07/15/24 In Process (Bumex Injection) 18:00 Date of Service: Jul 15, 2024 Billing Provider: TARA CRUZ MD Common Visit Codes: [id number] INP/OBS CARE(HIGH) ELOISE BLANCAS RESIDENT Jul 15, 2024 17:04 TARA CRUZ MD Jul 19, 2024 09:20
[2024-07-15] MEDS: BUMETANIDE 2.5mg/10ml (0.25 mg/ml) INJ IV SCH (17:10)
[2024-07-15] MEDS ORDERED: METHOCARBAMOL 500 MG TAB PO PRN (19:45)
[2024-07-15] MEDS: PROCHLORPERAZINE EDISYLATE 5 MG/ML 2ML VIAL IV PRN (20:59)
[2024-07-15] MEDS: ENOXAPARIN SOD 120 MG/0.8 ML SYRINGE SC SCH (21:07)
[2024-07-16] VITALS (8 sets, daily range): BP systolic 99–117; BP diastolic 65–78; PULSE 85–98; RESP 18–20; TEMP 97.3–98.8; O2SAT 96–100
--- NOTE | 2024-07-16 09:02 | ECG ---
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
[2024-07-16] MEDS ORDERED: ATOR20TA50 PO (10:09)
[2024-07-16] MEDS ORDERED: CARV3.1240 PO (10:09)
[2024-07-16] MEDS ORDERED: EMPA1TAB PO (10:09)
[2024-07-16] MEDS ORDERED: ASPI81TA10 PO (10:09)
[2024-07-16] MEDS ORDERED: POTA20TA24 PO (10:09)
[2024-07-16] MEDS ORDERED: PANT40T PO (10:09)
[2024-07-16] MEDS ORDERED: BUME2TAB5 PO (10:09)
[2024-07-16 11:45] LABS: Alanine Aminotransferase 14 U/L (7-40); Albumin 3.4 g/dL (3.2-4.8); Alkaline Phosphatase 105 U/L (46-116); Anion Gap 5 (5-15); Aspartate Aminotransferase 25 U/L (13-40); Chloride 101 mmol/L (98-107); Potassium 4.2 mmol/L (3.5-5.1); Sodium 138 mmol/L (136-145)
[2024-07-16 11:46] LABS: Total Protein 6.3 g/dL (5.7-8.2)
[2024-07-16 11:52] LABS: Blood Urea Nitrogen 8 mg/dL (9-23); Carbon Dioxide 32 mmol/L (20-31); Glucose 116 mg/dL (74-106)
[2024-07-16] MEDS: BUMETANIDE 2.5mg/10ml (0.25 mg/ml) INJ IV SCH (12:50)
[2024-07-16] MEDS: HYDROcodone-ACET 5/325MG TAB PO PRN (18:29)
--- NOTE | 2024-07-16 20:49 | DVHPNRES ---
Progress Note Date Seen: Jul 16, 2024 Resident Creating Document: ELOISE BLANCAS RESIDENT Medical Necessity Reason Pt with a Central, PICC or Fol: No Medical Necessity Reason CHF exacerbation Left leg Cellulitis Subjective Review of Systems Patient is seen and examined today at the bedside No Nausea or vomiting today. Patient is on Zofran. Abdominal discomfort is getting better. Abdominal ultrasound revealed Moderate amount of ascites around the liver, spleen in the pericolic gutters bilaterally and in the pelvis. Somewhat nodular appearance to the surface of the liver. Patient's current ejection fraction is 10% patient was also positive for polysubstance use in his urine such as methamphetamine, benzodiazepine and cannabinoids. Patient mentioned that in the past where he has had fluid overload he would use Bumex 6 mg b.i.d. and that seems to have helped. And is tolerating full liquid diet without any sign of nausea or vomiting. Objective vital signs Vital Sign Date Time Temp Pulse Resp B/P (MAP) Pulse Ox O2 Delivery O2 Flow Rate FiO2 07/16/24 17:00 98.0 98 18 99/65 (76) 97 98.0 07/16/24 08:00 Room Air* 0 21 Total Intake and Output 07/15/24 07/15/24 07/16/24 15:00 23:00 07:00 Intake Total 50 ml 1000 ml 900 ml Output Total 700 ml 600 ml Balance 50 ml 300 ml 300 ml medications Current Medications Medications Dose Ordered Sig/Anat Route Start Time Stop Time Status Last Admin Dose Admin Aspirin 81 mg DAILY PO 07/14/24 10:00 07/16/24 12:35 81 MG Atorvastatin Calcium 40 mg HS PO 07/14/24 22:00 07/15/24 20:59 40 MG Metoprolol Tartrate 12.5 mg Q12HR PO 07/14/24 10:00 07/16/24 12:36 12.5 MG Acetaminophen 650 mg Q6HP PRN PO 07/14/24 00:15 Zolpidem Tartrate 5 mg QHSP PRN PO 07/14/24 00:15 07/16/24 00:57 5 MG Lorazepam 0.5 mg Q6HP PRN PO 07/14/24 00:15 07/14/24 21:08 0.5 MG Docusate Sodium 100 mg DAILY PO 07/14/24 10:00 07/15/24 08:57 100 MG Al Hydrox/Mg Hydrox/Simethicone 30 ml Q6HPRN PRN PO 07/14/24 00:15 07/15/24 11:35 30 ML Lisinopril 10 mg DAILY PO 07/14/24 10:00 07/16/24 12:34 10 MG Nitroglycerin 0.4 mg Q5MINP PRN SL 07/14/24 00:15 Morphine Sulfate 2 mg Q30M PRN IV 07/14/24 00:15 07/14/24 04:09 2 MG Multivitamins/ Minerals 1 tab DAILY PO 07/14/24 10:00 07/16/24 12:34 1 TAB Multivit/Ca Carb/ B Cmplx/FA/Prenat 1 tab DAILY PO 07/14/24 10:00 07/16/24 12:34 1 TAB Ondansetron HCl 4 mg Q4HP PRN PO 07/14/24 08:45 07/14/24 10:09 4 MG Cefazolin Sodium 50 ml @ 100 mls/hr Q6HR IV 07/14/24 12:00 07/16/24 17:37 100 MLS/HR Pantoprazole Sodium 40 mg BID IV 07/14/24 22:00 07/16/24 12:36 40 MG Ondansetron HCl 4 mg Q6HPRN PRN IV 07/14/24 13:30 07/15/24 17:11 4 MG Ketorolac Tromethamine 15 mg Q6HPRN PRN IV 07/14/24 17:00 07/19/24 16:59 Hold 07/15/24 17:10 15 MG Prochlorperazine Edisylate 5 mg Q4HPRN PRN IV 07/14/24 17:00 07/16/24 18:29 5 MG Spironolactone 25 mg DAILY PO 07/15/24 10:00 07/16/24 12:35 25 MG Morphine Sulfate 1 mg Q4HP PRN IV 07/14/24 18:30 07/16/24 14:43 1 MG Enoxaparin Sodium 120 mg Q12HR SC 07/15/24 22:00 07/16/24 12:36 120 MG Acetaminophen/ Hydrocodone Bitart 1 tab Q6HPRN PRN PO 07/15/24 19:45 07/16/24 18:29 1 TAB Methocarbamol 500 mg QIDPRN PRN PO 07/15/24 19:45 Bumetanide 3 mg TID IV 07/16/24 11:45 07/16/24 12:50 3 MG Examination General examination--Morbidly obese male, acute distress HEENT: PEERLA, no acute nasal discharge Chest: S1-S2 audible, rate and rhythm regular, no murmur Lung: CTAB, no wheeze or rhonchi Abdomen: Distend, BS+, mildly tenderness, no organomegaly Musculoskeletal: left sided mid upper back pain Lower extremity: LT: red,demarcated, edema up to the edema; RT: 2+ edema, up to the knee Neurological: cranial nerves intact, no acute dysarthria or dysphagia Psychiatry-- Normal mood and affect Skin- no acute rash or purpura laboratory and microbiology Laboratory Tests 07/16/24 11:14 07/14/24 17:50 07/14/24 04:49 Test 07/16/24 11:14 Range/Units Serum Glucose 116 H 74-106 mg/dL Microbiology Date/Time Source Procedure Growth Status 07/14/24 10:37 Nose MRSA Screen - Final Complete Problem List/Assessment/Plan Problem List/Assessment/Plan Acute on chronic HFrEF --> previous echo: 20% 10/2023 --> Repeat echo : 07/2024: 10% --> Increased Bumex 3mg TID --> Continue spironolactone Acute hypoxic respiratory failure --> fluid overload --> Nasal oxygen Sinus tachycardia --> monitor EKG Cellulitis left leg --> DVT ruled out --> Cefazolin --> left leg circumference: 16.5 Measure the size of the left leg at each shift Left ventricular thrombus --> noted on Echo ( 07/14/2024) --->07/16/2024: therapeutic Lovenox 1 milligram/kg. Patient refused the dose yesterday. I explained to him the importance of being on this therapeutic dose. Patient educated about then pronounced been on this medication and he expressed full comprehension and agrees to take the Lovenox. ?Possible Gastroenteritis --> Moderate amount of ascites around the liver, spleen in the pericolic gutters bilaterally and in the pelvis. --> Anasarca. --> hepatitis C antibody negative --> Hepatis B core antibody pending Iron deficiency Anemia --> Iron; 29 --> hgb/hct: 11.6/33.2 --> ? iron supplement vs diet Morbid obesity --> BMI: 33.78 --> Not his dry weight Polysubstance abuse, last use was 4 days ago --> Amphetamines --> benzodiazepine --> cannabinoids --> discussed the patient about detoxification hypokaelemia--> resolved --> K: 2.8 ( initial) --> replaced Bilateral pleural effusions Diet: full liquid diet zofran: IV q6hrs prn toradal: IV 15mg q6hrs Code status: Full code Goal of care discussed for more than 30 minutes Case and plan discussed with Dr. Fontana Plan discussed with: Patient My Orders My Orders Orders - ELOISE BLANCAS Procedure Category Date Status Time Bumetanide Injection PHA 07/16/24 In Process (Bumex Injection) 11:45 Mechanical Soft Diet DIET 07/16/24 Transmitted Lunch Date of Service: Jul 16, 2024 Billing Provider: TARA CRUZ MD Common Visit Codes: [id number] INP/OBS CARE(HIGH) ELOISE BLANCAS Jul 16, 2024 20:49 TARA CRUZ MD Jul 19, 2024 09:09
[2024-07-17 05:00] VITALS: BP 116/88; PULSE 90; RESP 18; TEMP 98; O2SAT 96
[2024-07-17 08:00] VITALS: PULSE 93
[2024-07-17 10:00] VITALS: BP 117/71; PULSE 96; RESP 18; O2SAT 100
[2024-07-17] MEDS ORDERED: LISI-275 PO (10:32)
[2024-07-17] MEDS ORDERED: METH-1181 PO (10:32)
[2024-07-17] MEDS ORDERED: CEPH250C PO (10:32)
[2024-07-17] MEDS ORDERED: ZOFR4T PO (12:40)
[2024-07-17 13:00] VITALS: BP 117/65; PULSE 85; RESP 19; TEMP 97.7; O2SAT 98
[2024-07-17] MEDS ORDERED: APIX5TAB PO (13:59)
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
== END 2024-07-17 17:50 | disposition home or self-care (01) | DRG 133 ==
LOC: ER 18:20 → OVERFLOW 07-14 00:06 → TELE-CENTR 07-14 03:22
PROVIDERS: ADMIT Student in an Organized Health Care Education/Training Program; ATTEND Student in an Organized Health Care Education/Training Program
DX: J96.01 Acute respiratory failure with hypoxia (principal); I50.23 Acute on chronic systolic (congestive) heart failure; I24.0 Acute coronary thrombosis not resulting in myocardial infarction; L03.116 Cellulitis of left lower limb; J90 Pleural effusion, not elsewhere classified; D50.9 Iron deficiency anemia, unspecified; F17.210 Nicotine dependence, cigarettes, uncomplicated; K52.9 Noninfective gastroenteritis and colitis, unspecified; Z20.822 Contact with and (suspected) exposure to COVID-19; E66.01 Morbid (severe) obesity due to excess calories; F19.10 Other psychoactive substance abuse, uncomplicated; E87.6 Hypokalemia; Z79.899 Other long term (current) drug therapy; Z68.33 Body mass index [BMI] 33.0-33.9, adult
CPT/HCPCS: 36415; 71046; 74018; 74176; 80048; 80053; 80307; 80320; 81001; 83540; 83550; 83735; 83880; 84132; 84484; 85014; 85018; 85025; 86706; 86803; 87081; 87340; 87426; 93005; 93306; 93970; 99291; G0378; J1885; J2003; J2405; J2470; Q0162

== ENCOUNTER 2024-09-19 09:23 | Inpatient (IN) | payer OTHER ==
[~2024-09-19] VITALS: Ht 182.9 cm; Wt 122.7 kg
[~2024-09-19 09:23] MED LIST changes: +APIX5TAB PO; +ASPI81TA10 PO; +ATOR20TA50 PO; +BUME2TAB5 PO; +CARV3.1240 PO; +CEPH250C PO; +EMPA1TAB PO; -FURO40TA4 PO; +LISI-275 PO; +METH-1181 PO; +PANT40T PO; +POTA20TA24 PO; +ZOFR4T PO
--- NOTE | 2024-09-19 10:24 | ED.PDOC ---
History of Present Illness HPI Comments 39M presents to the ER in a wheelchair and w/ prior Hx of CHF, Liver Cirrhosis and Kidney Problems which all may be associated to the c/c of ABD pain. Pt reports on having ABD pain for 3 days associated w/ SOB and Bilateral extremity swelling. Pt also has N/V. Pt notes that he was in [facility] 5 days ago and was not treated right because they "don't have no rooms for admits". PMHx of DM. SHx of cholecystectomy. Social Hx of Methamphetamine use 2 days ago. Denies chills, fever, /D, CP or other associated symptom's, modifiers, or recent injuries or sick contact at this time. Chief Complaint: Abdominal Pain Time Seen by MD: 09:40 Primary Care Provider: pt does not know Reviewed Notes: Nurses Notes, Medications, Allergies Allergies: Coded Allergies: NO KNOWN ALLERGIES (Unverified , 09/13/11) Home Meds Active Scripts Apixaban Base (ELIQUIS) 5 Mg Tab, 10 MG PO BID for 7 Days, #28 TAB 10MG BID X 7 DAYS THEN 5MG PO BID FOR AT LEAST 6 MONTHS FOR DVT/PE TREATMENT Prov:KELSEA COX RESIDENT 07/17/24 Apixaban Base (ELIQUIS) 5 Mg Tab, 5 MG PO BID for 180 Days, #360 TAB Prov:KELSEA COX RESIDENT 07/17/24 Ondansetron Odt 4MG Tab (ZOFRAN PO) 4 Mg Tb, 4 MG PO Q4HP PRN for 7 Days, #35 TAB ODT TAB-DISSOLVE IN MOUTH, THEN SWALLOW Prov:KELSEA COX RESIDENT 07/17/24 Methocarbamol (Methocarbamol) 500 Mg Tab, 500 MG PO QHSP PRN for 10 Days, #10 TAB Prov:KELSEA COX RESIDENT 07/17/24 Lisinopril (Lisinopril) 5 Mg Tab, 10 MG PO DAILY for 30 Days, #60 TAB 1 Refill Prov:KELSEA COX RESIDENT 07/17/24 Cephalexin (KEFLEX CAPSULE) 250 Mg Cp, 2 CAP PO BID for 5 Days, #28 CAP Prov:KELSEA COX RESIDENT 07/17/24 Reported Medications Empagliflozin (Jardiance) 10 Mg Tab, 10 MG PO DAILY, TAB 07/16/24 Aspirin (Aspirin Ec Low Dose) 81 Mg Tab, 81 MG PO DAILY, TAB 07/16/24 Pantoprazole Sodium Sesquihydr (Pantoprazole Sodium) 40 Mg Tab, 40 MG PO DAILY, TAB 07/16/24 Atorvastatin Calcium (ATORVASTATIN CALCIUM) 20 Mg Tab, 20 MG PO HS, TAB 07/16/24 Potassium Bicarbonate-Citric A (Effer-K) 20 Meq Tab, 20 MEQ PO DAILY, TAB 07/16/24 Carvedilol (Carvedilol) 3.125 Mg Tab, 3.125 MG PO BID, MG 07/16/24 Bumetanide (Bumetanide) 2 Mg Tab, 2 TAB PO TID, TAB 07/16/24 Spironolactone (Spironolactone) 25 Mg Tab, 25 MG PO BID 10/28/23 Information Source: Patient Mode of Arrival: Wheelchair Severity: Moderate Timing: Days Duration: Since onset, Days Prehospital treatment: None Past Medical History PAST MEDICAL HISTORY: CHF, DM Past Medical History (Other): Kidney Problems and Liver Cirrhosis Surgical History: Cholecystectomy Family History Family History: Reviewed,noncontributory to illness, Unknown Social History Smoker: Non-Smoker Alcohol: Denies ETOH Use Drugs: Methamphetamine Lives In: Home Constitutional: denies: chills, diaphoresis, fatigue, fever, malaise, sweats, weakness, others EENTM: denies: blurred vision, double vision, ear bleeding, ear discharge, ear drainage, ear pain, ear ringing, eye pain, eye redness, hearing loss, mouth pain, mouth swelling, nasal discharge, nose bleeding, nose congestion, nose pain, photophobia, tearing, throat pain, throat swelling, voice changes, others Respiratory: reports: shortness of breath; denies: cough, hemoptysis, orthopnea, SOB at rest, SOB with excertion, stridor, wheezing, others Cardiovascular: denies: chest pain, dizzy spells, diaphoresis, Dyspnea on exertion, edema, irregular heart beat, left arm pain, lightheadedness, palpitations, PND, syncope, others Gastrointestinal: reports: abdominal pain; denies: abdomen distended, blood streaked bowels, constipated, diarrhea, dysphagia, difficulty swallowing, hematemesis, melena, nausea, poor appetite, poor fluid intake, rectal bleeding, rectal pain, vomiting, others Genitourinary: denies: burning, dysuria, flank pain, frequency, hematuria, incontinence, penile discharge, penile sore, pain, testicle pain, testicle swelling, urgency, others Neurological: denies: dizziness, fainting, headache, left sided numbness, left sided weakness, numbness, paresthesia, pre-existing deficit, right sided numbness, right sided weakness, seizure, speech problems, tingling, tremors, weakness, others Musculoskeletal: denies: back pain, gout, joint pain, joint swelling, muscle pain, muscle stiffness, neck pain, others Integumetry: denies: bruises, change in color, change in hair/nails, dryness, laceration, lesions, lumps, rash, wounds, others Allergic/Immunocompromised: denies: Difficulty Healing, Frequent Infections, Hives, Itching, others Hematologic/Lymphatic: denies: anemia, blood clots, easy bleeding, easy bruising, swollen glands, others Endocrine: denies: excessive hunger, excessive sweating, excessive thirst, excessive urination, flushing, intolerance to cold, intolerance to heat, un explained weight gain, unexplained weight loss, others Psychiatric: denies: anxiety, bipolar disorder, depression, hopeless, panic disorder, schizophrenia, sleepless, suicidal, others All Other Systems: Reviewed and Negative Physical Exam General Appearance: Moderate Distress, Normal HEENT: Normal ENT Inspection, Pharynx Normal, TMs Normal Neck: Full Range of Motion, Non-Tender, Normal, Normal Inspection Respiratory: Chest Non-Tender, Lungs Clear, No Accessory Muscle Use, No Respiratory Distress, Normal Breath Sounds Cardiovascular: No Edema, No JVD, No Murmur, No Gallop, Normal Peripheral Pulse s, Tachycardia Breast Exam: Deferred Gastrointestinal: Distended, No Organomegaly, No Pulsatile Mass, Normal Bowel Sounds, Soft Genitalia: Deferred Pelvic: Deferred Rectal: Deferred Extremities: No calf tenderness, Normal capillary refill, Normal range of motion, Non-tender, Pedal edema, Swelling (Bilateral lower extremity) Musculoskeletal : Apperance: Normal Neurologic: Alert, sheet metal engineer II-XII nml as Tested, No Motor Deficits, Normal Affect, Normal Mood, No Sensory Deficits Cerebellar Function: NOT DONE Reflexes: NOT DONE Skin: Dry, Normal Color, Warm Peripheral Pulses: 3+ Radial (R), 3+ Radial (L) Lymphatic: No Adenopathy Was a procedure done? Was a procedure done?: No Differential Dx Considerations may include: CHF Electrolyte imbalance X-Ray, Labs, Meds, VS Vital Signs Date Time Temp Pulse Resp B/P (MAP) Pulse Ox O2 Delivery O2 Flow Rate FiO2 09/19/24 09:38 117 09/19/24 09:37 97.2 115 20 120/79 (93) 98 Lab Test 09/19/24 10:41 Range/Units White Blood Count Pending Red Blood Count Pending Hemoglobin Pending Hematocrit Pending Mean Corpuscular Volume Pending Mean Corpuscular Hemoglobin Pending Mean Corpuscular Hemoglobin Concent Pending Red Cell Distribution Width Pending Platelet Count Pending Mean Platelet Volume Pending Neutrophils (%) (Auto) Pending Lymphocytes (%) (Auto) Pending Monocytes (%) (Auto) Pending Basophils (%) (Auto) Pending Neutrophils # (Auto) Pending Lymphocytes # (Auto) Pending Monocytes # (Auto) Pending Sodium Level Pending Potassium Level Pending Chloride Level Pending Carbon Dioxide Level Pending Anion Gap Pending Blood Urea Nitrogen Pending Creatinine Pending Glomerular Filtration Rate Calc Pending BUN/Creatinine Ratio Pending Serum Glucose Pending Calcium Level Pending B-Type Natriuretic Peptide Pending Patient alert. Complaining of shortness a breath. Bilateral lower extremity swelling. Saturation pristine on room air. Tachycardia. Is not taking his medication. Was recently at [facility]. Continues to use drugs. Explained to the patient. Continue cardiac monitoring. Time of 1ST Reevaluation: 10:10 Reevaluation 1ST: Unchanged Patient Education/Counseling: Diagnosis, Treatment, Prognosis Family Education/Counseling: No Family Present Departure 1 Departure Time of Disposition: 11:00 Impression: Primary Impression: Diastolic heart failure Qualified Codes: I50.33 - Acute on chronic diastolic (congestive) heart failure Additional Impressions: Chest pain of unknown etiology Methamphetamine use Disposition: ADMITTED INPATIENT Admit to: Med Surg Condition: Guarded Critical Care Note Critical Care Time?: Yes (45 min-critical care time only) Critical care comment: Shortness of breath Stability Stability form required: No Heart Score Heart Score: Heart Score Response (Comments) Value History Slightly Suspicious 0 EKG Normal 0 Age <45 0 Risk Factors 1 or 2 risk factors 1 Troponin Normal limit 0 Total 1 I personally scribed for RASHID GARCÍA MD ([email or web address]) on 09/19/24 at 10:24. Electronically submitted by Jose Alfredo Ramos ([email or web address]). RASHID GARCÍA MD Sep 19, 2024 10:24
[2024-09-19 11:13] LABS: Chloride 99 mmol/L (98-107); Potassium 4.3 mmol/L (3.5-5.1)
[2024-09-19 11:14] LABS: Anion Gap 9 (5-15); Calcium 9.3 mg/dL (8.7-10.4); Carbon Dioxide 24 mmol/L (20-31)
[2024-09-19 11:19] LABS: BUN/Creatinine Ratio 14.8 (10.0-20.0); Blood Urea Nitrogen 17 mg/dL (9-23)
[2024-09-19 11:21] LABS: Glucose 107 mg/dL (74-106); Sodium 132 mmol/L (136-145)
[2024-09-19 11:22] LABS: Basophils # (auto) 0 10 ^3/uL (0-0.2); Basophils % (auto) 0.6 % (0.0-2.0); Eosinophils # (auto) 0.1 10 ^3/uL (0-0.8); Eosinophils % (auto) 2.1 % (0.0-7.0); Hematocrit 33.7 % (41.0-53.0); Hemoglobin 11.1 g/dL (13.5-17.5); Lymphocytes # (auto) 1.2 10 ^3/uL (0.4-5.4); Lymphocytes % (auto) 16.7 % (10.0-50.0); Mean Corpuscular Hemoglobin 26.2 pg (28.0-32.0); Mean Corpuscular Hgb Conc. 32.8 g/dL (32.0-36.0); Mean Corpuscular Volume 79.7 fL (80.0-100.0); Monocytes # (auto) 0.7 10 ^3/uL (0-1.3); Neutrophils # (auto) 5.1 10 ^3/uL (1.6-8.6); Neutrophils % (auto) 70.6 % (37.0-80.0); Nucleated Red Blood Cells % 0.2 %; Platelet Count (auto) 259 10^3/uL (140-450); Red Blood Cells 4.22 10^6/uL (4.5-5.90); White Blood Cell 7.2 10^3/uL (4.4-10.8)
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
--- NOTE | 2024-09-19 12:37 | DVH ---
CHEST RADIOGRAPH Indication: sob Technique: Single frontal view of the chest was obtained Comparison: XY CHEST PORTABLE on DOS: 10/27/23 FINDINGS: Lines and Tubes: None Lungs: No focal consolidation. Pleura: No effusion. No pneumothorax. Cardiomediastinal contours: Cardiomegaly. Bones: No acute osseous abnormality. IMPRESSION: Cardiomegaly with mild CHF
[2024-09-19] MEDS: BUMETANIDE 2.5mg/10ml (0.25 mg/ml) INJ IV ONE (14:45)
[2024-09-19] MEDS ORDERED: DEXTROSE (50%) 50ML SYRG IV PRN (14:45)
[2024-09-19] MEDS ORDERED: NITROGLYCERIN 0.4 MG SL TAB SL PRN (14:45)
--- NOTE | 2024-09-19 15:40 | DVH ---
Procedure: CT CT AB PEL WO CON-NO ORAL OR IV 09/19/2024 02:57 PM Indication: abd pain Comparison Study: CT CT AB PEL WO CON-NO ORAL OR IV on DOS: 07/14/24 Technique: Axial images were obtained and reformatted in coronal and sagittal planes. All CT scans at this medical facility are performed using dose modulation techniques as appropriate t o a performed exam including the following: Automated exposure control was utilized; adjustment of th e MA and/or KV according to patient size; and use of iterative reconstruction technique. CT Dose: CTDI volume is 24.67 mGy. Dose-length product is 1369.65 mGy*cm FINDINGS: Lower Chest: Moderate cardiomegaly. Mild interstitial thickening in bibasilar regions. Trace right pl eural effusion. Hepatobiliary: Nodularity of liver contour. Gallbladder surgically absent. Large abdominopelvic ascit es. Spleen: Unremarkable. Pancreas: Unremarkable. Adrenal Glands: Unremarkable. tract: The kidneys are normal in size bilaterally without hydronephrosis or nephrolithiasis. The urinary bladder is unremarkable. GI tract: The stomach is grossly normal in appearance. No evidence of small bowel obstruction. The la rge bowel is unremarkable. A subcentimeter appendicolith in the appendiceal lumen. Lymphatics: No mesenteric lymphadenopathy. Subcentimeter retroperitoneal lymph nodes are seen. Bilate ral pelvic sidewall lymphadenopathy measuring up to 2.1 x 0.9 cm. Vasculature: The abdominal aorta is normal in in caliber. Pelvic Organs: Unremarkable Bones/soft tissues: Diffuse body wall edema. Old posterior left 8th rib fracture, partially healed. Small fat containing midline epigastric abdominal wall hernia.. Other: None. IMPRESSION: 1. CHF with evidence of volume overload. Trace right pleural effusion, large ascites diffuse body wal l edema noted. 2. Slightly nodular liver contour may reflect cirrhosis. Correlate with liver function tests. 3. A subcentimeter appendicolith noted in an otherwise normal-appearing appendix. 4. Mild bilateral pelvic sidewall lymphadenopathy.
[2024-09-19 16:07] LABS: INR 1.44 (0.9-1.15); Prothrombin Time 14.7 sec (9.3-11.8)
[2024-09-19] MEDS: InsuLIN REG 1unit/0.01ml Soln (100units/ml) SC SCH (17:00)
[2024-09-19] MEDS: ACCU-CHEK COMFORT CURVE STRIP VI SCH (17:09)
[2024-09-19 17:44] VITALS: BP 133/85; PULSE 107; RESP 18; TEMP 97.3; O2SAT 98
--- NOTE | 2024-09-19 18:56 | DVH ---
ULTRASOUND ABDOMEN limited, 4 QUADRANTS INDICATION: FLUID CHECK Evaluate for ascites. TECHNIQUE: The four quadrants of the abdomen were scanned in potter-scale to assess for the presence of ascites. N o solid organ assessment was performed. FINDINGS: Moderate ascites IMPRESSIONS: 1. moderate ascites
[2024-09-19] MEDS: PANTOPRAZOLE 40 MG/10 ML VIAL INJ IV ONE (19:54)
[2024-09-19] MEDS: PIPERACILLIN-TAZOB 3.375GM 100 ML IV ONE (19:54)
[2024-09-19 20:00] VITALS: PULSE 108
[2024-09-19 21:00] VITALS: BP 107/70; PULSE 106; RESP 20; TEMP 97.5; O2SAT 100
[2024-09-19] MEDS: ONDANSETRON HCL 4 MG/2 ML VIAL IV PRN (21:23)
[2024-09-19] MEDS: HYDROcodone-ACET 5/325MG TAB PO ONE (21:51)
[2024-09-19] MEDS: PANTOPRAZOLE 40 MG/10 ML VIAL INJ IV SCH (22:00)
[2024-09-19] MEDS: SPIRONOLACTONE 25 MG TAB PO SCH (22:57)
[2024-09-19] MEDS: CARVEDILOL 3.125 MG TAB PO SCH (22:57)
[2024-09-19] MEDS: ATORVASTATIN 20 MG TAB PO SCH (22:57)
[2024-09-19] MEDS: APIXABAN 5 MG TAB PO SCH (22:58)
[2024-09-20] VITALS (7 sets, daily range): BP systolic 100–115; BP diastolic 63–76; PULSE 86–98; RESP 18–20; TEMP 97.3–98.7; O2SAT 96–98
[2024-09-20] MEDS: PIPERACILLIN-TAZOB 3.375GM 100 ML IV SCH (01:22)
[2024-09-20 01:48] LABS: Urine Bacteria None Seen /hpf (None Seen)
[2024-09-20 01:54] LABS: Urine Blood Negative /uL (Negative); Urine Clarity Clear (Clear); Urine Color Light-Yellow (Yellow); Urine Protein, UAD Negative (Negative); Urine Specific Gravity 1.006 (1.001-1.035); Urine Squamous Epithelial Cell None Seen /hpf (<5); Urine Urobilinogen Normal (Negative); Urine pH 5.5 (5.0-9.0)
[2024-09-20 01:58] LABS: Urine WBC < 1 /HPF (0-3)
[2024-09-20 02:27] LABS: Amphetamine Screen, Urine Pos (NEGATIVE); Barbiturate Scree,Urine Neg (NEGATIVE); Benzodiazephine Screen, Urine Neg (NEGATIVE); Cannabinoid Screen, Urine Neg (NEGATIVE); Cocaine Screen, Urine Neg (NEGATIVE); Opiate Scree,Urine Neg (NEGATIVE); Phencyclidine Screen, Urine Neg (NEGATIVE)
[2024-09-20] MEDS: BUMETANIDE 2.5mg/10ml (0.25 mg/ml) INJ IV SCH (06:18)
[2024-09-20] MEDS: HYDROcodone-ACET 5/325MG TAB PO PRN (06:45)
[2024-09-20 06:54] LABS: Triglycerides 72 mg/dL (< 150)
[2024-09-20 06:55] LABS: LDL Cholesterol 55 mg/dL (< 100)
[2024-09-20 06:56] LABS: Cholesterol 76 mg/dL (< 200)
[2024-09-20 07:10] LABS: HDL Cholesterol 13 mg/dL (40-59)
[2024-09-20] MEDS: LISINOPRIL 5 MG TAB PO SCH (10:00)
[2024-09-20] MEDS: ASPirin-EC 81 mg tab PO SCH (10:19)
[2024-09-20] MEDS: EMPAGLIFLOZIN 10 MG TAB PO SCH (10:20)
--- NOTE | 2024-09-20 13:25 | ECG ---
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
--- NOTE | 2024-09-20 14:53 | DVHPN2 ---
Subjective Complains of generalized pain Status post paracentesis Changes from previous H/P or p: Changes Eyes: No Pain, No Vision change, No Conjunctivae inflammation, No Eyelid inflammation, No Other, No Redness ENT: No Ear pain, No Ear discharge, No Nose pain, No Nose discharge, No Nose congestion, No Mouth pain, No Mouth swelling, No Throat pain, No Throat swelling, No Other Cardiovascular: No Chest Pain, No Palpitations, No Orthopnea, No Paroxysmal Noc. Dyspnea, No Edema, No Lt Headedness, No Other Respiratory: No Cough, No Dry, No Shortness of breath, No SOB with excertion, No Wheezing, No Hemoptysis, No Pleuritic Pain, No Sputum, No Other Gastrointestinal: No Nausea, No Vomiting; Abdominal Pain; No Diarrhea, No Constipation, No Melena, No Hematochezia, No Other Genitourinary: No Dysuria, No Frequency, No Incontinence, No Hematuria, No Retention, No Other Musculoskeletal: No other, No neck pain, No shoulder pain, No arm pain, No back pain, No hand pain, No leg pain, No foot pain Skin: No Rash, No Lesions, No Jaundice, No Bruising, No Other Objective Vitals Vital Signs Date Time Temp Pulse Resp B/P (MAP) Pulse Ox O2 Delivery O2 Flow Rate FiO2 09/20/24 13:00 97.5 97 18 105/76 (86) 97 97.5 09/20/24 08:00 Room Air* 0 21 Intake/Output Intake and Output 09/20/24 07:00 Intake Total 350 ml Output Total 200 ml Balance 150 ml Intake Oral 150 ml IV Total 200 ml Output Urine Total 200 ml General Appearance: Alert, Oriented X3, Cooperative, No acute distress Lungs: Clear to auscultation, Normal air movement Abdomen: Normal bowel sounds, Soft, No tenderness Extremities: Other (2+ edema bilaterally in lower extremities) Medications Current Medications Medications Dose Ordered Sig/Anat Route Start Time Stop Time Status Last Admin Dose Admin Apixaban 5 mg BID PO 09/19/24 22:00 09/20/24 10:19 5 MG Aspirin 81 mg DAILY PO 09/20/24 10:00 09/20/24 10:19 81 MG Atorvastatin Calcium 20 mg HS PO 09/19/24 22:00 09/19/24 22:57 20 MG Carvedilol 3.125 mg BID PO 09/19/24 22:00 09/19/24 22:57 3.125 MG Empaglifozin 10 mg DAILY PO 09/20/24 10:00 09/20/24 10:20 10 MG Lisinopril 10 mg DAILY PO 09/20/24 10:00 Spironolactone 25 mg BID PO 09/19/24 22:00 09/20/24 10:17 25 MG Pantoprazole Sodium 40 mg BID IV 09/19/24 22:00 09/20/24 10:17 40 MG Bumetanide 2 mg BIDD IV 09/20/24 06:00 09/20/24 06:18 2 MG Diagnostic Test (Pha) 1 strip ACHS 09/19/24 17:00 09/20/24 11:30 1 STRIP Insulin Human Regular ACHS SC 09/19/24 17:00 09/20/24 13:07 2 UNITS Dextrose 50 ml UD PRN IV 09/19/24 14:45 Nitroglycerin 0.4 mg Q5MINP PRN SL 09/19/24 14:45 Piperacillin Sod/ Tazobactam Sod 100 ml @ 25 mls/hr Q6HR IV 09/20/24 00:00 09/20/24 14:25 25 MLS/HR Ondansetron HCl 4 mg Q4HPRN PRN IV 09/19/24 21:15 09/20/24 08:37 4 MG Acetaminophen/ Hydrocodone Bitart 1 tab Q6HPRN PRN PO 09/20/24 06:45 09/20/24 06:45 1 TAB Laboratory Results Laboratory Tests 09/19/24 10:41 Lipid panel Test 09/20/24 05:42 Cholesterol Level 76 mg/dL (< 200) HDL Cholesterol 13 mg/dL (40-59) L Triglycerides Level 72 mg/dL (< 150) Urinalysis Test 09/20/24 01:30 Urine Color Light-yellow (Yellow) Urine Clarity Clear (Clear) Urine pH 5.5 (5.0-9.0) Urine Specific [place] 1.006 (1.001-1.035) Urine Protein Negative (Negative) Urine Ketones Negative (Negative) Urine Blood Negative /uL (Negative) Urine Nitrite Negative (Negative) Urine Bilirubin Negative (Negative) Urine Urobilinogen Normal mg/dL (Negative) Urine Leukocyte Esterase Negative /uL (Negative) Urine RBC None seen /hpf (0 - 3) Urine Microscopic WBC < 1 /HPF (0-3) Urine Squamous Epithelial Cells None seen /hpf (<5) Urine Bacteria None seen /hpf (None Seen) Urine Glucose Normal mg/dL (Normal) Assessment/Plan Assessment/Plan Acute on chronic congestive heart failure exacerbation , systolic Nonischemic cardiomyopathy, severe, most likely drug-induced Ascites Liver cirrhosis Type 2 diabetes Positive for amphetamine Polysubstance abuse Homeless Morbid obesity Iron deficiency anemia Chronic anemia Hyponatremia Hypothyroidism Plan Bumex IV 2 mg twice a day Aldactone 25 mg twice a day IV Protonix Lisinopril Jardiance Coreg Lipitor Aspirin Eliquis Zosyn Cardiac consult management services technician consult for homelessness Monitor closely and the rest of the management will depend on the hospital course Plan discussed with: Patient Date of Service: Sep 20, 2024 Billing Provider: ANN-MARIE RIOJAS MD Common Visit Codes: [id number] INP/OBS CARE(HIGH) ANN-MARIE RIOJAS MD Sep 20, 2024 14:53
--- NOTE | 2024-09-20 15:06 | DVHINCON2 ---
TOMER IQBAL [facility] 09/20/24 1506: Date Seen: Sep 20, 2024 Referring Physician SHIMA Martinez Reason for Consultation Acute CHF exacerbation History of Present Illness This is a 39-year-old male patient who presents to emergency room with chief complaint of abdominal pain, shortness of breath, and bilateral lower extremity edema. Cardiology is now being consulted for CHF exacerbation. Initial twelve lead electrocardiogram reveals sinus tachycardia with nonspecific intraventricular conduction delay. Initial troponin level on this admission is negative. Initial BNP level of 1560.39pg/mL. 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 The patient denies following up with a electronic game developer in the outpatient setting. The patient also reports that he stopped taking all of his medications because he believes that they caused his liver cirrhosis. Past Medical History Past medical history reviewed. No other significant than mentioned above. Past Surgical History Cholecystectomy in 2013 Family History: Diabetes mellitus G8 MOTHER, Onset:Unknown FH: congestive heart failure G8 FATHER, , Cause: CHF (congestive heart failure) Family History Family history reviewed. Social History Patient admits to methamphetamine use, toxicology report on this admission positive for amphetamines Patient denies any alcohol use The patient has a six pack-year history, quit smoking approximately two years ago Allergies: Coded Allergies: NO KNOWN ALLERGIES (Unverified , 09/13/11) Home Meds Active Scripts Apixaban Base (ELIQUIS) 5 Mg Tab, 5 MG PO BID for 180 Days, #360 TAB Prov:KELSEA COX RESIDENT 07/17/24 Lisinopril (Lisinopril) 5 Mg Tab, 10 MG PO DAILY for 30 Days, #60 TAB 1 Refill Prov:KELSEA COX RESIDENT 07/17/24 Reported Medications Empagliflozin (Jardiance) 10 Mg Tab, 10 MG PO DAILY, TAB 07/16/24 Aspirin (Aspirin Ec Low Dose) 81 Mg Tab, 81 MG PO DAILY, TAB 07/16/24 Pantoprazole Sodium Sesquihydr (Pantoprazole Sodium) 40 Mg Tab, 40 MG PO DAILY, TAB 07/16/24 Atorvastatin Calcium (ATORVASTATIN CALCIUM) 20 Mg Tab, 20 MG PO HS, TAB 07/16/24 Potassium Bicarbonate-Citric A (Effer-K) 20 Meq Tab, 20 MEQ PO DAILY, TAB 07/16/24 Carvedilol (Carvedilol) 3.125 Mg Tab, 3.125 MG PO BID, MG 07/16/24 Bumetanide (Bumetanide) 2 Mg Tab, 2 TAB PO TID, TAB 07/16/24 Spironolactone (Spironolactone) 25 Mg Tab, 25 MG PO BID 10/28/23 Home Meds Patient has stopped taking all of his prescribed medications Current Medications Current Medications Medications (Trade) Dose Ordered Sig/Anat Route PRN Reason Start Time Stop Time Status Last Admin Apixaban (Eliquis) 5 mg BID PO 09/19/24 22:00 09/20/24 10:19 Aspirin (Ecotrin Enteric Coated Tablet) 81 mg DAILY PO 09/20/24 10:00 09/20/24 10:19 Atorvastatin Calcium (Lipitor) 20 mg HS PO 09/19/24 22:00 09/19/24 22:57 Carvedilol (Coreg Tablet) 3.125 mg BID PO 09/19/24 22:00 09/19/24 22:57 Empaglifozin (Jardiance) 10 mg DAILY PO 09/20/24 10:00 09/20/24 10:20 Lisinopril (Zestril Tablet) 10 mg DAILY PO 09/20/24 10:00 Spironolactone (Aldactone) 25 mg BID PO 09/19/24 22:00 09/20/24 10:17 Pantoprazole Sodium (Protonix) 40 mg BID IV 09/19/24 22:00 09/20/24 10:17 Bumetanide (Bumex Injection) 2 mg BIDD IV 09/20/24 06:00 09/20/24 06:18 Diagnostic Test (Pha) (Accu-Chek Comfort Curve T) 1 strip ACHS 09/19/24 17:00 09/20/24 11:30 Insulin Human Regular (InsuLIN R) ACHS SC 09/19/24 17:00 09/20/24 13:07 Piperacillin Sod/ Tazobactam Sod 100 ml @ 25 mls/hr Q6HR IV 09/20/24 00:00 09/20/24 14:25 Ondansetron HCl (Zofran) 4 mg Q4HPRN PRN IV NAUSEA / VOMITING 09/19/24 21:15 09/20/24 08:37 Acetaminophen/ Hydrocodone Bitart ([place] 5/325MG Tab) 1 tab Q6HPRN PRN PO MODERATE PAIN (4-6 PAIN SCALE) 09/20/24 06:45 09/20/24 06:45 Morphine Sulfate 2 mg Q4HPRN PRN IV SEVERE PAIN (7-10 PAIN SCALE) 09/20/24 14:45 Review of Systems Constitutional: No symptom reported Ears, Nose, & Throat: No symptom reported Eyes: No symptom reported Neurological: No symptoms reported Pulmonary/Respiratory: Shortness of breath Cardiovascular: Bilateral lower extremity edema Gastrointestinal: Abdominal pain Genitourinary: No symptom reported Musculoskeletal: No symptom reported Skin: No symptom reported Psychiatric: No symptom reported Endocrine: No symptom reported Hematologic/Lymphatic: No symptom reported Vital Signs Vital Signs Date Time Temp Pulse Resp B/P (MAP) Pulse Ox O2 Delivery O2 Flow Rate FiO2 09/20/24 13:00 97.5 97 18 105/76 (86) 97 97.5 09/20/24 08:00 Room Air* 0 21 Physical Exam General Appearance: Cooperative. Unkempt Pulmonary/Respiratory: Clear, bilateral breaths sounds. Cardiovascular/Chest: Regular rate and rhythm. Peripheral Pulses: 2+ Radial (R). 2+ Radial (L). 1+ Pedal (R). 1+ Pedal (L) Abdominal Exam: Normal bowel sounds. Ankle Exam: 4+ pitting edema Lower extremities: 4+ pitting edema Neuro/Mental Status: A/OX4, coherent. Thoughts/Psych: Normal thought pattern. Appropriate mood and affect. Good judgment and insight. Appearance: No acute distress. Skin Exam: Normal inspection. Normal color. Warm and dry. Labs/Diagnostic Data Labs Test 09/20/24 13:02 09/20/24 05:42 09/20/24 01:30 09/19/24 13:34 Range/Units POC Glucose 139 H 70-106 mg/dl Triglycerides Level 72 < 150 mg/dL Cholesterol Level 76 < 200 mg/dL LDL Cholesterol 55 < 100 mg/dL HDL Cholesterol 13 L 40-59 mg/dL Urine Color Light-yellow Yellow Urine Clarity Clear Clear Urine pH 5.5 5.0-9.0 Urine Specific [place] 1.006 1.001-1.035 Urine Protein Negative Negative Urine Ketones Negative Negative Urine Blood Negative Negative /uL Urine Nitrite Negative Negative Urine Bilirubin Negative Negative Urine Urobilinogen Normal Negative mg/dL Urine Leukocyte Esterase Negative Negative /uL Urine RBC None seen 0 - 3 /hpf Urine Microscopic WBC < 1 0-3 /HPF Urine Squamous Epithelial Cells None seen <5 /hpf Urine Bacteria None seen None Seen /hpf Urine Glucose Normal Normal mg/dL Urine Opiates Screen Neg NEGATIVE Urine Fentanyl Screen Neg NEGATIVE Urine Barbiturates Screen Neg NEGATIVE Urine Phencyclidine Screen Neg NEGATIVE Urine Amphetamines Screen Pos NEGATIVE Urine Benzodiazepines Screen Neg NEGATIVE Urine Cocaine Screen Neg NEGATIVE Urine Cannabinoids Screen Neg NEGATIVE Prothrombin Time 14.7 H 9.3-11.8 sec Prothrombin Time INR 1.44 H 0.9-1.15 Test 09/19/24 10:41 Range/Units White Blood Count 7.2 4.4-10.8 10^3/uL Red Blood Count 4.22 L 4.5-5.90 10^6/uL Hemoglobin 11.1 L 13.5-17.5 g/dL Hematocrit 33.7 L 41.0-53.0 % Mean Corpuscular Volume 79.7 L 80.0-100.0 fL Mean Corpuscular Hemoglobin 26.2 L 28.0-32.0 pg Mean Corpuscular Hemoglobin Concent 32.8 32.0-36.0 g/dL Red Cell Distribution Width 23.0 H 11.8-14.3 % Platelet Count 259 140-450 10^3/uL Mean Platelet Volume 8.1 6.9-10.8 fL Neutrophils (%) (Auto) 70.6 37.0-80.0 % Lymphocytes (%) (Auto) 16.7 10.0-50.0 % Monocytes (%) (Auto) 10.0 0.0-12.0 % Eosinophils (%) (Auto) 2.1 0.0-7.0 % Basophils (%) (Auto) 0.6 0.0-2.0 % Neutrophils # (Auto) 5.1 1.6-8.6 10 ^3/uL Lymphocytes # (Auto) 1.2 0.4-5.4 10 ^3/uL Monocytes # (Auto) 0.7 0-1.3 10 ^3/uL Eosinophils # (Auto) 0.1 0-0.8 10 ^3/uL Basophils # (Auto) 0 0-0.2 10 ^3/uL Nucleated Red Blood Cells 0.2 % Sodium Level 132 L 136-145 mmol/L Potassium Level 4.3 3.5-5.1 mmol/L Chloride Level 99 98-107 mmol/L Carbon Dioxide Level 24 20-31 mmol/L Anion Gap 9 5-15 Blood Urea Nitrogen 17 9-23 mg/dL Creatinine 1.15 0.700-1.30 mg/dL Glomerular Filtration Rate Calc 83 >90 mL/min BUN/Creatinine Ratio 14.8 10.0-20.0 Serum Glucose 107 H 74-106 mg/dL Calcium Level 9.3 8.7-10.4 mg/dL Magnesium Level 2.1 1.6-2.6 mg/dL Troponin I High Sensitivity 22 </=54 ng/L B-Type Natriuretic Peptide 1560.39 0-100 pg/mL Thyroid Stimulating Hormone (TSH) 10.89 H 0.55-4.78 uIU/mL Assessment Acute on chronic decompensated HFrEF, NYHA class III 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 Wagner): * Transthoracic echocardiogram from 07/14/2024 reveals EF 10% * In the left ventricular cavity there is a small echodense structure oval in shape measuring 2 x1 mm likely representing an LV thrombus, per report * Initiate guideline directed medical therapy for CHF as tolerated * Strict intake and output, daily weights, maintain fluid restriction * Aggressive diuresis as tolerated * Continue Eliquis for LV thrombus (off-label treatment) * Coumadin recommended per guidelines, but given patient's substance abuse, likely will not adhere. * Cardiac surveillance * Risk factor modifications, counseled * Adherence to medications * Cessation of amphetamine use Case reviewed and discussed with . Continue with medical management. There is no further inpatient cardiac workup indicated at this time. Patient educated on the need to continue with medical management and establish a electronic game developer in the outpatient setting. Patient verbalized understanding. Cardiology will sign off. Please reconsult if needed. Thank you for allowing us to care for this patient. Please call with any questions or concerns. Critical care time spent: 44 minutes This medical document was created using an electronic medical record system with voice recognition software and computerized dictation system. Although this document has been carefully reviewed, there might still be some phonetic and typographical errors. Occasional wrong-word or ``sound-alike substitutions may have occurred due to the inherent limitations of voice recognition software. These areas are purely typographical due to imperfections of the software programs and do not reflect any compromise in the patient's medical care. Please read the chart carefully and recognize, using context, where these substitutions have occurred. Plan discussed with: Patient NYHA Physical activity limitations: Class3(Marked) ordinary (activity causes symtoms) Date of Service: Sep 20, 2024 Billing Provider: TOMER IQBAL Cardiology Common Codes: [id number] INP/OBS CARE (High) Cardiology Consultation Codes: [id number] CONSULT <45MIN AMAURY WAGNER MD 09/20/24 1816: Family History: Diabetes mellitus G8 MOTHER, Onset:Unknown FH: congestive heart failure G8 FATHER, , Cause: CHF (congestive heart failure) Allergies: Coded Allergies: NO KNOWN ALLERGIES (Unverified , 09/13/11) Home Meds Active Scripts Apixaban Base (ELIQUIS) 5 Mg Tab, 5 MG PO BID for 180 Days, #360 TAB Prov:KELSAE COX RESIDENT 07/17/24 Lisinopril (Lisinopril) 5 Mg Tab, 10 MG PO DAILY for 30 Days, #60 TAB 1 Refill Prov:KELSEA COX RESIDENT 07/17/24 Reported Medications Empagliflozin (Jardiance) 10 Mg Tab, 10 MG PO DAILY, TAB 07/16/24 Aspirin (Aspirin Ec Low Dose) 81 Mg Tab, 81 MG PO DAILY, TAB 07/16/24 Pantoprazole Sodium Sesquihydr (Pantoprazole Sodium) 40 Mg Tab, 40 MG PO DAILY, TAB 07/16/24 Atorvastatin Calcium (ATORVASTATIN CALCIUM) 20 Mg Tab, 20 MG PO HS, TAB 07/16/24 Potassium Bicarbonate-Citric A (Effer-K) 20 Meq Tab, 20 MEQ PO DAILY, TAB 07/16/24 Carvedilol (Carvedilol) 3.125 Mg Tab, 3.125 MG PO BID, MG 07/16/24 Bumetanide (Bumetanide) 2 Mg Tab, 2 TAB PO TID, TAB 07/16/24 Spironolactone (Spironolactone) 25 Mg Tab, 25 MG PO BID 10/28/23 Plan/Recommendation end stage HF, high risk for given non compliance very poor prognosis cont diuretics GDMT if feasible Date of Service: Sep 20, 2024 Billing Provider: AMAURY WAGNER MD Cardiology Common Codes: NOT BILLABLE TOMER IQBAL Sep 20, 2024 15:06 AMAURY WAGNER MD Sep 20, 2024 18:16
[2024-09-20] MEDS: MORPHINE SULFATE INJ 2 MG/ml SYRG IV PRN (15:45)
--- NOTE | 2024-09-20 15:48 | DVH ---
US PARACENTESIS, HISTORY: ASCITES PROCEDURE: Informed consent was obtained. The patient was placed in supine position. A limited locali zation ultrasound of the abdomen was obtained, and the skin site over the largest pocket of fluid was marked and entry site was prepped with chlorhexidine which was allowed to dry and draped in the usua l sterile fashion. Time out was performed. Following administration of 1% lidocaine local anesthetic, a 5 Maltese centesis needle catheter was percutaneously inserted into the peritoneal collection until fluid was aspirated. The catheter was advanced into the fluid collection and the needle removed. Abo [place] 6500 cc of fluid was aspirated and specimen sent for appropriate cultures/cytology/cultures and cy tology. The catheter was then removed and a sterile dressing applied. No immediate complication was identified. FINDINGS: Limited ultrasound imaging demonstrates moderate ascites. Aspirated fluid was clear and ser ous. IMPRESSION: US-guided paracentesis with 6.5L removed.
[2024-09-20 20:03] LABS: Body Fluid Red Blood Cells 26292 CUMM (0-2000); Body Fluid White Blood Cells 175 CUMM (0-200)
[2024-09-20 20:27] LABS: Body Fluid Polymorphonuclear 26 % (0-25)
[2024-09-21] VITALS (8 sets, daily range): BP systolic 91–99; BP diastolic 51–64; PULSE 85–102; RESP 17–19; TEMP 97.2–98; O2SAT 90–99
[2024-09-21 06:49] LABS: Anion Gap 10 (5-15); Carbon Dioxide 24 mmol/L (20-31); Chloride 102 mmol/L (98-107); Potassium 3.5 mmol/L (3.5-5.1)
[2024-09-21 06:55] LABS: BUN/Creatinine Ratio 13.8 (10.0-20.0); Blood Urea Nitrogen 15 mg/dL (9-23); Glucose 102 mg/dL (74-106)
[2024-09-21 06:56] LABS: Magnesium 1.9 mg/dL (1.6-2.6)
[2024-09-21 06:58] LABS: Calcium 8.4 mg/dL (8.7-10.4); Sodium 136 mmol/L (136-145)
--- NOTE | 2024-09-21 11:12 | DVHPN2 ---
Subjective Is doing better Edema is better He has says he is not ready to go home yet since he is homeless and he is trying to find accommodation with the his friend who is coming to town again tomorrow Changes from previous H/P or p: Changes Eyes: No Pain, No Vision change, No Conjunctivae inflammation, No Eyelid inflammation, No Other, No Redness ENT: No Ear pain, No Ear discharge, No Nose pain, No Nose discharge, No Nose congestion, No Mouth pain, No Mouth swelling, No Throat pain, No Throat swelling, No Other Cardiovascular: No Chest Pain, No Palpitations, No Orthopnea, No Paroxysmal Noc. Dyspnea, No Edema, No Lt Headedness, No Other Respiratory: No Cough, No Dry, No Shortness of breath, No SOB with excertion, No Wheezing, No Hemoptysis, No Pleuritic Pain, No Sputum, No Other Gastrointestinal: No Nausea, No Vomiting; Abdominal Pain; No Diarrhea, No Constipation, No Melena, No Hematochezia, No Other Genitourinary: No Dysuria, No Frequency, No Incontinence, No Hematuria, No Retention, No Other Musculoskeletal: No other, No neck pain, No shoulder pain, No arm pain, No back pain, No hand pain, No leg pain, No foot pain Skin: No Rash, No Lesions, No Jaundice, No Bruising, No Other Objective Vitals Vital Signs Date Time Temp Pulse Resp B/P (MAP) Pulse Ox O2 Delivery O2 Flow Rate FiO2 09/21/24 09:47 98/58 09/21/24 09:46 85 09/21/24 09:00 97.7 17 97 97.7 09/21/24 08:20 Room Air* 0 21 Intake/Output Intake and Output 09/21/24 07:00 Intake Total 1515 ml Output Total 4325 ml Balance -2810 ml Intake Oral 1115 ml IV Total 400 ml Output Urine Total 4325 ml # Bowel Movements 1 General Appearance: Alert, Oriented X3, Cooperative, No acute distress Lungs: Clear to auscultation, Normal air movement Abdomen: Normal bowel sounds, Soft, No tenderness Extremities: Other (2+ edema bilaterally in lower extremities) Medications Current Medications Medications Dose Ordered Sig/Anat Route Start Time Stop Time Status Last Admin Dose Admin Apixaban 5 mg BID PO 09/19/24 22:00 09/21/24 09:41 5 MG Aspirin 81 mg DAILY PO 09/20/24 10:00 09/21/24 09:41 81 MG Atorvastatin Calcium 20 mg HS PO 09/19/24 22:00 09/20/24 21:08 20 MG Carvedilol 3.125 mg BID PO 09/19/24 22:00 09/20/24 21:09 3.125 MG Empaglifozin 10 mg DAILY PO 09/20/24 10:00 09/21/24 09:41 10 MG Lisinopril 10 mg DAILY PO 09/20/24 10:00 Spironolactone 25 mg BID PO 09/19/24 22:00 09/21/24 09:41 25 MG Pantoprazole Sodium 40 mg BID IV 09/19/24 22:00 09/21/24 09:41 40 MG Bumetanide 2 mg BIDD IV 09/20/24 06:00 09/20/24 17:55 2 MG Diagnostic Test (Pha) 1 strip ACHS 09/19/24 17:00 09/21/24 06:23 1 STRIP Insulin Human Regular ACHS SC 09/19/24 17:00 09/20/24 21:18 2 UNITS Dextrose 50 ml UD PRN IV 09/19/24 14:45 Nitroglycerin 0.4 mg Q5MINP PRN SL 09/19/24 14:45 Piperacillin Sod/ Tazobactam Sod 100 ml @ 25 mls/hr Q6HR IV 09/20/24 00:00 09/21/24 05:34 25 MLS/HR Ondansetron HCl 4 mg Q4HPRN PRN IV 09/19/24 21:15 09/20/24 21:06 4 MG Acetaminophen/ Hydrocodone Bitart 1 tab Q6HPRN PRN PO 09/20/24 06:45 09/21/24 05:28 1 TAB Morphine Sulfate 2 mg Q4HPRN PRN IV 09/20/24 14:45 09/20/24 15:45 2 MG Laboratory Results Laboratory Tests 09/19/24 10:41 09/21/24 05:50 Chemistry Test 09/21/24 05:50 Calcium Level 8.4 mg/dL (8.7-10.4) L Magnesium Level 1.9 mg/dL (1.6-2.6) Urinalysis Test 09/20/24 01:30 Urine Color Light-yellow (Yellow) Urine Clarity Clear (Clear) Urine pH 5.5 (5.0-9.0) Urine Specific [place] 1.006 (1.001-1.035) Urine Protein Negative (Negative) Urine Ketones Negative (Negative) Urine Blood Negative /uL (Negative) Urine Nitrite Negative (Negative) Urine Bilirubin Negative (Negative) Urine Urobilinogen Normal mg/dL (Negative) Urine Leukocyte Esterase Negative /uL (Negative) Urine RBC None seen /hpf (0 - 3) Urine Microscopic WBC < 1 /HPF (0-3) Urine Squamous Epithelial Cells None seen /hpf (<5) Urine Bacteria None seen /hpf (None Seen) Urine Glucose Normal mg/dL (Normal) Assessment/Plan Assessment/Plan Acute on chronic congestive heart failure exacerbation , systolic Nonischemic cardiomyopathy, severe, most likely drug-induced Ascites Liver cirrhosis Type 2 diabetes Positive for amphetamine Polysubstance abuse Homeless Morbid obesity Iron deficiency anemia Chronic anemia Hyponatremia Hypothyroidism Plan Bumex IV 2 mg twice a day Aldactone 25 mg twice a day IV Protonix Lisinopril Jardiance Coreg Lipitor Aspirin Eliquis Zosyn Cardiac consult billing services manager consult for homelessness Monitor closely and the rest of the management will depend on the hospital course 09/21/2024: Discontinue Zosyn, no infection Continue diuresis with Bumex and Aldactone Monitor closely Discharge planning for tomorrow Plan discussed with: Patient My Orders Orders - ANN-MARIE RIOJAS MD Procedure Category Date Status Time Morphine Sulfate PHA 09/20/24 In Process Injection 14:45 Body Fluid Culture W/ KAROLINE 09/20/24 In Process GS 18:25 Date of Service: Sep 21, 2024 Billing Provider: ANN-MARIE RIOJAS MD Common Visit Codes: [id number] INP/OBS CARE(HIGH) ANN-MARIE RIOJAS MD Sep 21, 2024 11:12
[2024-09-22] VITALS (7 sets, daily range): BP systolic 92–106; BP diastolic 58–66; PULSE 74–94; RESP 18–19; TEMP 97.6–98.6; O2SAT 93–99
[2024-09-22 04:14] LABS: Anion Gap 8 (5-15); Carbon Dioxide 25 mmol/L (20-31); Chloride 102 mmol/L (98-107); Potassium 3.6 mmol/L (3.5-5.1)
[2024-09-22 04:20] LABS: BUN/Creatinine Ratio 14.7 (10.0-20.0); Blood Urea Nitrogen 17 mg/dL (9-23); Glucose 105 mg/dL (74-106)
[2024-09-22 04:21] LABS: Magnesium 1.8 mg/dL (1.6-2.6)
[2024-09-22 04:37] LABS: Calcium 8.3 mg/dL (8.7-10.4); Sodium 135 mmol/L (136-145)
--- NOTE | 2024-09-22 12:00 | DVHPN2 ---
Subjective He is complaining of edema in his scrotum in his legs and increased swelling in his abdomen Changes from previous H/P or p: Changes Eyes: No Pain, No Vision change, No Conjunctivae inflammation, No Eyelid inflammation, No Other, No Redness ENT: No Ear pain, No Ear discharge, No Nose pain, No Nose discharge, No Nose congestion, No Mouth pain, No Mouth swelling, No Throat pain, No Throat swelling, No Other Cardiovascular: No Chest Pain, No Palpitations, No Orthopnea, No Paroxysmal Noc. Dyspnea, No Edema, No Lt Headedness, No Other Respiratory: No Cough, No Dry, No Shortness of breath, No SOB with excertion, No Wheezing, No Hemoptysis, No Pleuritic Pain, No Sputum, No Other Gastrointestinal: No Nausea, No Vomiting; Abdominal Pain; No Diarrhea, No Constipation, No Melena, No Hematochezia, No Other Genitourinary: No Dysuria, No Frequency, No Incontinence, No Hematuria, No Retention, No Other Musculoskeletal: No other, No neck pain, No shoulder pain, No arm pain, No back pain, No hand pain, No leg pain, No foot pain Skin: No Rash, No Lesions, No Jaundice, No Bruising, No Other Objective Vitals Vital Signs Date Time Temp Pulse Resp B/P (MAP) Pulse Ox O2 Delivery O2 Flow Rate FiO2 09/22/24 11:38 89 101/61 09/22/24 11:37 18 09/22/24 08:49 97.6 98 97.6 09/22/24 08:00 Room Air* 0 21 Intake/Output Intake and Output 09/22/24 07:00 Intake Total 1530 ml Output Total 1050 ml Balance 480 ml Intake Oral 1430 ml IV Total 100 ml Output Urine Total 1050 ml General Appearance: Alert, Oriented X3, Cooperative, No acute distress Lungs: Clear to auscultation, Normal air movement Abdomen: Normal bowel sounds, Soft, No tenderness Extremities: Other (2+ edema bilaterally in lower extremities) Medications Current Medications Medications Dose Ordered Sig/Anat Route Start Time Stop Time Status Last Admin Dose Admin Apixaban 5 mg BID PO 09/19/24 22:00 09/22/24 09:58 5 MG Aspirin 81 mg DAILY PO 09/20/24 10:00 09/22/24 09:59 81 MG Atorvastatin Calcium 20 mg HS PO 09/19/24 22:00 09/21/24 21:52 20 MG Carvedilol 3.125 mg BID PO 09/19/24 22:00 09/22/24 09:59 3.125 MG Empaglifozin 10 mg DAILY PO 09/20/24 10:00 09/22/24 09:58 10 MG Lisinopril 10 mg DAILY PO 09/20/24 10:00 09/22/24 09:57 10 MG Spironolactone 25 mg BID PO 09/19/24 22:00 09/22/24 09:57 25 MG Pantoprazole Sodium 40 mg BID IV 09/19/24 22:00 09/22/24 10:00 40 MG Bumetanide 2 mg BIDD IV 09/20/24 06:00 09/21/24 18:00 2 MG Diagnostic Test (Pha) 1 strip ACHS 09/19/24 17:00 09/22/24 11:55 1 STRIP Insulin Human Regular ACHS SC 09/19/24 17:00 09/22/24 11:55 2 UNITS Dextrose 50 ml UD PRN IV 09/19/24 14:45 Nitroglycerin 0.4 mg Q5MINP PRN SL 09/19/24 14:45 Ondansetron HCl 4 mg Q4HPRN PRN IV 09/19/24 21:15 09/22/24 06:45 4 MG Acetaminophen/ Hydrocodone Bitart 1 tab Q6HPRN PRN PO 09/20/24 06:45 09/22/24 10:00 1 TAB Morphine Sulfate 2 mg Q4HPRN PRN IV 09/20/24 14:45 09/22/24 06:46 2 MG Laboratory Results Laboratory Tests 09/19/24 10:41 09/22/24 03:12 Chemistry Test 09/22/24 03:12 Calcium Level 8.3 mg/dL (8.7-10.4) L Magnesium Level 1.8 mg/dL (1.6-2.6) Urinalysis Test 09/20/24 01:30 Urine Color Light-yellow (Yellow) Urine Clarity Clear (Clear) Urine pH 5.5 (5.0-9.0) Urine Specific [place] 1.006 (1.001-1.035) Urine Protein Negative (Negative) Urine Ketones Negative (Negative) Urine Blood Negative /uL (Negative) Urine Nitrite Negative (Negative) Urine Bilirubin Negative (Negative) Urine Urobilinogen Normal mg/dL (Negative) Urine Leukocyte Esterase Negative /uL (Negative) Urine RBC None seen /hpf (0 - 3) Urine Microscopic WBC < 1 /HPF (0-3) Urine Squamous Epithelial Cells None seen /hpf (<5) Urine Bacteria None seen /hpf (None Seen) Urine Glucose Normal mg/dL (Normal) Microbiology Microbiology Date/Time Source Procedure Growth Status 09/20/24 18:26 Ascities Fluid Gram Stain - Final Resulted 09/20/24 18:26 Ascities Fluid Body Fluid Culture - Preliminary Resulted Assessment/Plan Assessment/Plan Acute on chronic congestive heart failure exacerbation , systolic Nonischemic cardiomyopathy, severe, most likely drug-induced Ascites Liver cirrhosis Type 2 diabetes Positive for amphetamine Polysubstance abuse Homeless Morbid obesity Iron deficiency anemia Chronic anemia Hyponatremia Hypothyroidism Plan Bumex IV 2 mg twice a day Aldactone 25 mg twice a day IV Protonix Lisinopril Jardiance Coreg Lipitor Aspirin Eliquis Zosyn Cardiac consult director water and waste services consult for homelessness Monitor closely and the rest of the management will depend on the hospital course 09/21/2024: Discontinue Zosyn, no infection Continue diuresis with Bumex and Aldactone Monitor closely Discharge planning for tomorrow 09/22/2024: Continue diuresis with Bumex and Aldactone Fluid restriction mining support worker consult for helping with the homeless less He says his friend will come back tomorrow evening and he can go with him possibly tomorrow Plan discussed with: Patient Date of Service: Sep 22, 2024 Billing Provider: ANN-MARIE RIOJAS MD Common Visit Codes: [id number] INP/OBS CARE(HIGH) ANN-MARIE RIOJAS MD Sep 22, 2024 12:00
[2024-09-22 13:07] LABS: Protein, Body Fluid 3.6 g/dL (.)
[2024-09-23] VITALS (9 sets, daily range): BP systolic 88–110; BP diastolic 50–62; PULSE 79–94; RESP 15–22; TEMP 97.4–98.4; O2SAT 92–99
[2024-09-23 04:42] LABS: Chloride 103 mmol/L (98-107); Potassium 3.9 mmol/L (3.5-5.1)
[2024-09-23 04:43] LABS: Anion Gap 7 (5-15); Carbon Dioxide 25 mmol/L (20-31)
[2024-09-23 04:48] LABS: BUN/Creatinine Ratio 17.8 (10.0-20.0); Blood Urea Nitrogen 18 mg/dL (9-23)
[2024-09-23 04:49] LABS: Magnesium 1.9 mg/dL (1.6-2.6)
[2024-09-23 04:55] LABS: Calcium 8.3 mg/dL (8.7-10.4); Glucose 109 mg/dL (74-106); Sodium 135 mmol/L (136-145)
--- NOTE | 2024-09-23 11:59 | DVHPN2 ---
Subjective No new complaints Still has significant edema in his legs and scrotum Changes from previous H/P or p: Changes Eyes: No Pain, No Vision change, No Conjunctivae inflammation, No Eyelid inflammation, No Other, No Redness ENT: No Ear pain, No Ear discharge, No Nose pain, No Nose discharge, No Nose congestion, No Mouth pain, No Mouth swelling, No Throat pain, No Throat swelling, No Other Cardiovascular: No Chest Pain, No Palpitations, No Orthopnea, No Paroxysmal Noc. Dyspnea, No Edema, No Lt Headedness, No Other Respiratory: No Cough, No Dry, No Shortness of breath, No SOB with excertion, No Wheezing, No Hemoptysis, No Pleuritic Pain, No Sputum, No Other Gastrointestinal: No Nausea, No Vomiting; Abdominal Pain; No Diarrhea, No Constipation, No Melena, No Hematochezia, No Other Genitourinary: No Dysuria, No Frequency, No Incontinence, No Hematuria, No Retention, No Other Musculoskeletal: No other, No neck pain, No shoulder pain, No arm pain, No back pain, No hand pain, No leg pain, No foot pain Skin: No Rash, No Lesions, No Jaundice, No Bruising, No Other Objective Vitals Vital Signs Date Time Temp Pulse Resp B/P (MAP) Pulse Ox O2 Delivery O2 Flow Rate FiO2 09/23/24 10:30 86 93/59 09/23/24 09:00 98.4 15 96 98.4 09/23/24 08:24 Room Air* 0 21 Intake/Output Intake and Output 09/23/24 07:00 Intake Total 1468 ml Output Total 3075 ml Balance -1607 ml Intake Oral 1468 ml Output Urine Total 3075 ml General Appearance: Alert, Oriented X3, Cooperative, No acute distress Lungs: Clear to auscultation, Normal air movement Abdomen: Normal bowel sounds, Soft, No tenderness Extremities: Other (2+ edema bilaterally in lower extremities) Medications Current Medications Medications Dose Ordered Sig/Anat Route Start Time Stop Time Status Last Admin Dose Admin Apixaban 5 mg BID PO 09/19/24 22:00 09/23/24 10:35 5 MG Aspirin 81 mg DAILY PO 09/20/24 10:00 09/23/24 10:29 81 MG Atorvastatin Calcium 20 mg HS PO 09/19/24 22:00 09/22/24 21:45 20 MG Carvedilol 3.125 mg BID PO 09/19/24 22:00 09/23/24 10:30 3.125 MG Empaglifozin 10 mg DAILY PO 09/20/24 10:00 09/23/24 10:30 10 MG Lisinopril 10 mg DAILY PO 09/20/24 10:00 09/22/24 09:57 10 MG Spironolactone 25 mg BID PO 09/19/24 22:00 09/23/24 10:30 25 MG Pantoprazole Sodium 40 mg BID IV 09/19/24 22:00 09/23/24 10:29 40 MG Bumetanide 2 mg BIDD IV 09/20/24 06:00 09/23/24 05:44 2 MG Diagnostic Test (Pha) 1 strip ACHS 09/19/24 17:00 09/23/24 06:16 1 STRIP Insulin Human Regular ACHS SC 09/19/24 17:00 09/23/24 06:16 2 UNITS Dextrose 50 ml UD PRN IV 09/19/24 14:45 Nitroglycerin 0.4 mg Q5MINP PRN SL 09/19/24 14:45 Ondansetron HCl 4 mg Q4HPRN PRN IV 09/19/24 21:15 09/23/24 05:44 4 MG Acetaminophen/ Hydrocodone Bitart 1 tab Q6HPRN PRN PO 09/20/24 06:45 09/23/24 10:35 1 TAB Morphine Sulfate 2 mg Q4HPRN PRN IV 09/20/24 14:45 09/23/24 03:20 2 MG Laboratory Results Laboratory Tests 09/19/24 10:41 09/23/24 03:57 Chemistry Test 09/23/24 03:57 Calcium Level 8.3 mg/dL (8.7-10.4) L Magnesium Level 1.9 mg/dL (1.6-2.6) Urinalysis Test 09/20/24 01:30 Urine Color Light-yellow (Yellow) Urine Clarity Clear (Clear) Urine pH 5.5 (5.0-9.0) Urine Specific [place] 1.006 (1.001-1.035) Urine Protein Negative (Negative) Urine Ketones Negative (Negative) Urine Blood Negative /uL (Negative) Urine Nitrite Negative (Negative) Urine Bilirubin Negative (Negative) Urine Urobilinogen Normal mg/dL (Negative) Urine Leukocyte Esterase Negative /uL (Negative) Urine RBC None seen /hpf (0 - 3) Urine Microscopic WBC < 1 /HPF (0-3) Urine Squamous Epithelial Cells None seen /hpf (<5) Urine Bacteria None seen /hpf (None Seen) Urine Glucose Normal mg/dL (Normal) Microbiology Microbiology Date/Time Source Procedure Growth Status 09/20/24 18:26 Ascities Fluid Gram Stain - Final Resulted 09/20/24 18:26 Ascities Fluid Body Fluid Culture - Preliminary Resulted Assessment/Plan Assessment/Plan Acute on chronic congestive heart failure exacerbation , systolic Nonischemic cardiomyopathy, severe, most likely drug-induced Ascites Liver cirrhosis Type 2 diabetes Positive for amphetamine Polysubstance abuse Homeless Morbid obesity Iron deficiency anemia Chronic anemia Hyponatremia Hypothyroidism Plan Bumex IV 2 mg twice a day Aldactone 25 mg twice a day IV Protonix Lisinopril Jardiance Coreg Lipitor Aspirin Eliquis Zosyn Cardiac consult account services coordinator consult for homelessness Monitor closely and the rest of the management will depend on the hospital course 09/21/2024: Discontinue Zosyn, no infection Continue diuresis with Bumex and Aldactone Monitor closely Discharge planning for tomorrow 09/22/2024: Continue diuresis with Bumex and Aldactone Fluid restriction ironing worker consult for helping with the homeless less He says his friend will come back tomorrow evening and he can go with him possibly tomorrow 09/23/2024: Continue current management pending him finding living arrangements He says his friend will come tomorrow evening Continue Eliquis and aspirin and Lipitor and Bumex and Coreg and Jardiance and lisinopril and Aldactone Plan discussed with: Patient Date of Service: Sep 23, 2024 Billing Provider: ANN-MARIE RIOJAS MD Common Visit Codes: [id number] INP/OBS CARE(MOD) ANN-MARIE RIOJAS MD Sep 23, 2024 11:59
[2024-09-24] VITALS (10 sets, daily range): BP systolic 95–117; BP diastolic 52–98; PULSE 78–96; RESP 18–20; TEMP 97.4–98; O2SAT 95–99
--- NOTE | 2024-09-24 21:01 | DVHPN2 ---
Subjective No new complaints Still has significant edema in his legs and scrotum Changes from previous H/P or p: Changes Eyes: No Pain, No Vision change, No Conjunctivae inflammation, No Eyelid inflammation, No Other, No Redness ENT: No Ear pain, No Ear discharge, No Nose pain, No Nose discharge, No Nose congestion, No Mouth pain, No Mouth swelling, No Throat pain, No Throat swelling, No Other Cardiovascular: No Chest Pain, No Palpitations, No Orthopnea, No Paroxysmal Noc. Dyspnea, No Edema, No Lt Headedness, No Other Respiratory: No Cough, No Dry, No Shortness of breath, No SOB with excertion, No Wheezing, No Hemoptysis, No Pleuritic Pain, No Sputum, No Other Gastrointestinal: No Nausea, No Vomiting; Abdominal Pain; No Diarrhea, No Constipation, No Melena, No Hematochezia, No Other Genitourinary: No Dysuria, No Frequency, No Incontinence, No Hematuria, No Retention, No Other Musculoskeletal: No other, No neck pain, No shoulder pain, No arm pain, No back pain, No hand pain, No leg pain, No foot pain Skin: No Rash, No Lesions, No Jaundice, No Bruising, No Other Objective Vitals Vital Signs Date Time Temp Pulse Resp B/P (MAP) Pulse Ox O2 Delivery O2 Flow Rate FiO2 09/24/24 18:05 117/63 (81) 09/24/24 17:00 98.0 18 98.0 09/24/24 11:49 78 95 09/24/24 08:00 Room Air* 0 21 Intake/Output Intake and Output 09/24/24 07:00 Intake Total 1112 ml Output Total 6080 ml Balance -4968 ml Intake Oral 1112 ml Output Urine Total 6080 ml General Appearance: Alert, Oriented X3, Cooperative, No acute distress Lungs: Clear to auscultation, Normal air movement Abdomen: Normal bowel sounds, Soft, No tenderness Extremities: Other (2+ edema bilaterally in lower extremities) Medications Current Medications Medications Dose Ordered Sig/Anat Route Start Time Stop Time Status Last Admin Dose Admin Apixaban 5 mg BID PO 09/19/24 22:00 09/24/24 08:58 5 MG Aspirin 81 mg DAILY PO 09/20/24 10:00 09/24/24 08:58 81 MG Atorvastatin Calcium 20 mg HS PO 09/19/24 22:00 09/23/24 22:18 20 MG Carvedilol 3.125 mg BID PO 09/19/24 22:00 09/24/24 08:57 3.125 MG Empaglifozin 10 mg DAILY PO 09/20/24 10:00 09/24/24 08:58 10 MG Lisinopril 10 mg DAILY PO 09/20/24 10:00 09/24/24 08:59 10 MG Spironolactone 25 mg BID PO 09/19/24 22:00 09/24/24 08:59 25 MG Pantoprazole Sodium 40 mg BID IV 09/19/24 22:00 09/24/24 08:56 40 MG Bumetanide 2 mg BIDD IV 09/20/24 06:00 09/23/24 18:15 2 MG Diagnostic Test (Pha) 1 strip ACHS 09/19/24 17:00 09/24/24 16:02 1 STRIP Insulin Human Regular ACHS SC 09/19/24 17:00 09/23/24 06:16 2 UNITS Dextrose 50 ml UD PRN IV 09/19/24 14:45 Nitroglycerin 0.4 mg Q5MINP PRN SL 09/19/24 14:45 Ondansetron HCl 4 mg Q4HPRN PRN IV 09/19/24 21:15 09/24/24 17:25 4 MG Acetaminophen/ Hydrocodone Bitart 1 tab Q6HPRN PRN PO 09/20/24 06:45 09/24/24 20:35 1 TAB Morphine Sulfate 2 mg Q4HPRN PRN IV 09/20/24 14:45 09/23/24 22:09 2 MG Laboratory Results Laboratory Tests 09/19/24 10:41 09/23/24 03:57 Urinalysis Test 09/20/24 01:30 Urine Color Light-yellow (Yellow) Urine Clarity Clear (Clear) Urine pH 5.5 (5.0-9.0) Urine Specific [place] 1.006 (1.001-1.035) Urine Protein Negative (Negative) Urine Ketones Negative (Negative) Urine Blood Negative /uL (Negative) Urine Nitrite Negative (Negative) Urine Bilirubin Negative (Negative) Urine Urobilinogen Normal mg/dL (Negative) Urine Leukocyte Esterase Negative /uL (Negative) Urine RBC None seen /hpf (0 - 3) Urine Microscopic WBC < 1 /HPF (0-3) Urine Squamous Epithelial Cells None seen /hpf (<5) Urine Bacteria None seen /hpf (None Seen) Urine Glucose Normal mg/dL (Normal) Microbiology Microbiology Date/Time Source Procedure Growth Status 09/20/24 18:26 Ascities Fluid Gram Stain - Final Resulted 09/20/24 18:26 Ascities Fluid Body Fluid Culture - Preliminary Resulted Assessment/Plan Assessment/Plan Acute on chronic congestive heart failure exacerbation , systolic Nonischemic cardiomyopathy, severe, most likely drug-induced Ascites Liver cirrhosis Type 2 diabetes Positive for amphetamine Polysubstance abuse Homeless Morbid obesity Iron deficiency anemia Chronic anemia Hyponatremia Hypothyroidism Plan Bumex IV 2 mg twice a day Aldactone 25 mg twice a day IV Protonix Lisinopril Jardiance Coreg Lipitor Aspirin Eliquis Zosyn Cardiac consult event services manager consult for homelessness Monitor closely and the rest of the management will depend on the hospital course 09/21/2024: Discontinue Zosyn, no infection Continue diuresis with Bumex and Aldactone Monitor closely Discharge planning for tomorrow 09/22/2024: Continue diuresis with Bumex and Aldactone Fluid restriction [employer] worker consult for helping with the homeless less He says his friend will come back tomorrow evening and he can go with him possibly tomorrow 09/23/2024: Continue current management pending him finding living arrangements He says his friend will come tomorrow evening Continue Eliquis and aspirin and Lipitor and Bumex and Coreg and Jardiance and lisinopril and Aldactone 09/24/24: Continue diuresis Plan discussed with: Patient My Orders Orders - ANN-MARIE RIOJAS MD Procedure Category Date Status Time * Instrumentation Instructor CONS 09/24/24 Transmitted Consult Date of Service: Sep 24, 2024 Billing Provider: ANN-MARIE RIOJAS MD Common Visit Codes: [id number] INP/OBS CARE(MOD) ANN-MARIE RIOJAS MD Sep 24, 2024 21:01
[2024-09-25] VITALS (7 sets, daily range): BP systolic 95–116; BP diastolic 55–68; PULSE 80–102; RESP 18–20; TEMP 97.8–99.3; O2SAT 95–100
--- NOTE | 2024-09-25 11:24 | DVH ---
CLINICAL INFORMATION: 39 years old, Male; Scrotal Swelling. TECHNIQUE: Grayscale sonographic imaging of the testicles and scrotal contents was performed , johanna emperatriz by color doppler technique. Duplex doppler ultrasound of both testicles was performed. COMPARISON: None FINDINGS: The right testicle measures 3.7 x 3.8 x 2. cm,. Arterial waveforms are present. Right epididymal hea d measures 2.3 cm. The left testicle measures 3.8 x 2.9 x 3.1 cm,. Left arterial waveforms are present. Left epididymal head measures 1.3 cm. There is extensive scrotal edema IMPRESSION: 1. Extensive scrotal edema, which limits evaluation. 2. No definitive testicular mass or torsion identified
[2024-09-25 12:25] LABS: Basophils # (auto) 0.1 10 ^3/uL (0-0.2); Basophils % (auto) 1.2 % (0.0-2.0); Eosinophils # (auto) 0.5 10 ^3/uL (0-0.8); Eosinophils % (auto) 7.2 % (0.0-7.0); Hematocrit 32.7 % (41.0-53.0); Hemoglobin 10.4 g/dL (13.5-17.5); Lymphocytes # (auto) 1.1 10 ^3/uL (0.4-5.4); Lymphocytes % (auto) 16.7 % (10.0-50.0); Mean Corpuscular Hemoglobin 25.2 pg (28.0-32.0); Mean Corpuscular Hgb Conc. 31.7 g/dL (32.0-36.0); Mean Corpuscular Volume 79.3 fL (80.0-100.0); Monocytes # (auto) 0.7 10 ^3/uL (0-1.3); Monocytes % (auto) 10.5 % (0.0-12.0); Neutrophils # (auto) 4.4 10 ^3/uL (1.6-8.6); Neutrophils % (auto) 64.4 % (37.0-80.0); Nucleated Red Blood Cells % 0.1 %; Platelet Count (auto) 244 10^3/uL (140-450); Red Blood Cells 4.12 10^6/uL (4.5-5.90); White Blood Cell 6.8 10^3/uL (4.4-10.8)
[2024-09-25 13:11] LABS: Alanine Aminotransferase 11 U/L (7-40); Albumin 3.4 g/dL (3.2-4.8); Alkaline Phosphatase 89 U/L (46-116); Anion Gap 6 (5-15); Aspartate Aminotransferase 24 U/L (13-40); BUN/Creatinine Ratio 17.2 (10.0-20.0); Blood Urea Nitrogen 17 mg/dL (9-23); Carbon Dioxide 24 mmol/L (20-31); Chloride 101 mmol/L (98-107); Potassium 4.4 mmol/L (3.5-5.1); Total Protein 6.1 g/dL (5.7-8.2)
[2024-09-25 13:13] LABS: Bilirubin, Direct 0.8 mg/dL (<0.3); Bilirubin, Total 1.3 mg/dL (0.2-1.0); Calcium 8.5 mg/dL (8.7-10.4); Glucose 134 mg/dL (74-106); Sodium 131 mmol/L (136-145)
[2024-09-25 13:23] LABS: Anisocytosis Slight; Ovalocytes FEW; Platelet Estimate Adequate
[2024-09-26] VITALS (9 sets, daily range): BP systolic 95–115; BP diastolic 53–64; PULSE 60–95; RESP 18–20; TEMP 97.7–98.9; O2SAT 94–99
--- NOTE | 2024-09-26 13:25 | DVHPN2 ---
Reviewed: Care Plan, H&P, Labs, Medications, Previous Orders, Radiology Changes from previous H/P or p: No Changes General: Per HPI Eyes: No Pain, No Vision change, No Conjunctivae inflammation, No Eyelid inflammation, No Other, No Redness ENT: No Ear pain, No Ear discharge, No Nose pain, No Nose discharge, No Nose congestion, No Mouth pain, No Mouth swelling, No Throat pain, No Throat swelling, No Other Cardiovascular: No Chest Pain, No Palpitations, No Orthopnea, No Paroxysmal Noc. Dyspnea, No Edema, No Lt Headedness, No Other Respiratory: No Cough, No Dry, No Shortness of breath, No SOB with excertion, No Wheezing, No Hemoptysis, No Pleuritic Pain, No Sputum, No Other Gastrointestinal: No Nausea, No Vomiting; Abdominal Pain; No Diarrhea, No Constipation, No Melena, No Hematochezia, No Other Genitourinary: No Dysuria, No Frequency, No Incontinence, No Hematuria, No Retention, No Other Musculoskeletal: No other, No neck pain, No shoulder pain, No arm pain, No back pain, No hand pain, No leg pain, No foot pain Skin: No Rash, No Lesions, No Jaundice, No Bruising, No Other Objective Vitals Vital Signs Date Time Temp Pulse Resp B/P (MAP) Pulse Ox O2 Delivery O2 Flow Rate FiO2 09/26/24 13:12 82 19 96/55 09/26/24 08:30 97.7 99 97.7 09/26/24 08:00 Room Air* 0 21 Intake/Output Intake and Output 09/26/24 07:00 Intake Total 1730 ml Output Total 615 ml Balance 1115 ml Intake Oral 1730 ml Output Urine Total 615 ml General Appearance: Alert, Oriented X3, Cooperative, No acute distress Lungs: Clear to auscultation, Normal air movement Abdomen: Normal bowel sounds, Soft, No tenderness Extremities: Other (2+ edema bilaterally in lower extremities) Medications Current Medications Medications Dose Ordered Sig/Anat Route Start Time Stop Time Status Last Admin Dose Admin Apixaban 5 mg BID PO 09/19/24 22:00 09/26/24 09:43 5 MG Aspirin 81 mg DAILY PO 09/20/24 10:00 09/26/24 09:42 81 MG Atorvastatin Calcium 20 mg HS PO 09/19/24 22:00 09/25/24 20:50 20 MG Carvedilol 3.125 mg BID PO 09/19/24 22:00 09/26/24 09:44 3.125 MG Empaglifozin 10 mg DAILY PO 09/20/24 10:00 09/26/24 09:45 10 MG Lisinopril 10 mg DAILY PO 09/20/24 10:00 09/26/24 09:44 10 MG Spironolactone 25 mg BID PO 09/19/24 22:00 09/26/24 09:43 25 MG Pantoprazole Sodium 40 mg BID IV 09/19/24 22:00 09/26/24 09:42 40 MG Bumetanide 2 mg BIDD IV 09/20/24 06:00 09/26/24 05:52 2 MG Dextrose 50 ml UD PRN IV 09/19/24 14:45 Cancel Nitroglycerin 0.4 mg Q5MINP PRN SL 09/19/24 14:45 Ondansetron HCl 4 mg Q4HPRN PRN IV 09/19/24 21:15 09/26/24 02:42 4 MG Acetaminophen/ Hydrocodone Bitart 1 tab Q6HPRN PRN PO 09/20/24 06:45 09/25/24 17:39 1 TAB Morphine Sulfate 2 mg Q4HPRN PRN IV 09/20/24 14:45 09/26/24 13:12 2 MG Laboratory Results Laboratory Tests 09/25/24 11:47 Urinalysis Test 09/20/24 01:30 Urine Color Light-yellow (Yellow) Urine Clarity Clear (Clear) Urine pH 5.5 (5.0-9.0) Urine Specific [place] 1.006 (1.001-1.035) Urine Protein Negative (Negative) Urine Ketones Negative (Negative) Urine Blood Negative /uL (Negative) Urine Nitrite Negative (Negative) Urine Bilirubin Negative (Negative) Urine Urobilinogen Normal mg/dL (Negative) Urine Leukocyte Esterase Negative /uL (Negative) Urine RBC None seen /hpf (0 - 3) Urine Microscopic WBC < 1 /HPF (0-3) Urine Squamous Epithelial Cells None seen /hpf (<5) Urine Bacteria None seen /hpf (None Seen) Urine Glucose Normal mg/dL (Normal) Microbiology Microbiology Date/Time Source Procedure Growth Status 09/20/24 18:26 Ascities Fluid Gram Stain - Final Resulted 09/20/24 18:26 Ascities Fluid Body Fluid Culture - Preliminary Resulted Labs and/or images reviewed: Labs reviewed by me, Image(s) reviewed by me Assessment/Plan Assessment/Plan Acute on chronic congestive heart failure exacerbation , systolic Nonischemic cardiomyopathy, severe, most likely drug-induced Ascites Liver cirrhosis Type 2 diabetes Positive for amphetamine Polysubstance abuse Homeless Morbid obesity Iron deficiency anemia Chronic anemia Hyponatremia Hypothyroidism Plan Bumex IV Aldactone 25 mg twice a day IV Protonix Lisinopril Jardiance Coreg Lipitor Aspirin Eliquis Zosyn Cardiac consult dining services manager consult for homelessness Monitor closely and the rest of the management will depend on the hospital course 09/21/2024: Discontinue Zosyn, no infection Continue diuresis with Bumex and Aldactone Monitor closely Discharge planning for tomorrow 09/22/2024: Continue diuresis with Bumex and Aldactone 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 consult for helping with the homeless less He says his friend will come back tomorrow evening and he can go with him possibly tomorrow 09/23/2024: Continue current management pending him finding living arrangements He says his friend will come tomorrow evening Continue Eliquis and aspirin and Lipitor and Bumex and Coreg and Jardiance and lisinopril and Aldactone 09/24/24: Continue diuresis 09/25/2024 continue with diuresis pt has 4+ pitting edema scrotal edema is still significant Plan discussed with: Patient My Orders Orders - PEEWEE MEDINA DO Procedure Category Date Status Time Bumetanide Injection PHA 09/26/24 Verified (Bumex Injection) 13:30 Metolazone (Zaroxolyn) PHA 09/26/24 Verified 13:30 Date of Service: Sep 26, 2024 Billing Provider: PEEWEE MEDINA DO Common Visit Codes: [id number] INP/OBS CARE(HIGH) PEEWEE MEDINA DO Sep 26, 2024 13:25
--- NOTE | 2024-09-26 13:26 | DVHPN2 ---
Reviewed: Care Plan, H&P, Labs, Medications, Previous Orders, Radiology Changes from previous H/P or p: No Changes General: Per HPI Eyes: No Pain, No Vision change, No Conjunctivae inflammation, No Eyelid inflammation, No Other, No Redness ENT: No Ear pain, No Ear discharge, No Nose pain, No Nose discharge, No Nose congestion, No Mouth pain, No Mouth swelling, No Throat pain, No Throat swelling, No Other Cardiovascular: No Chest Pain, No Palpitations, No Orthopnea, No Paroxysmal Noc. Dyspnea, No Edema, No Lt Headedness, No Other Respiratory: No Cough, No Dry, No Shortness of breath, No SOB with excertion, No Wheezing, No Hemoptysis, No Pleuritic Pain, No Sputum, No Other Gastrointestinal: No Nausea, No Vomiting; Abdominal Pain; No Diarrhea, No Constipation, No Melena, No Hematochezia, No Other Genitourinary: No Dysuria, No Frequency, No Incontinence, No Hematuria, No Retention, No Other Musculoskeletal: No other, No neck pain, No shoulder pain, No arm pain, No back pain, No hand pain, No leg pain, No foot pain Skin: No Rash, No Lesions, No Jaundice, No Bruising, No Other Objective Vitals Vital Signs Date Time Temp Pulse Resp B/P (MAP) Pulse Ox O2 Delivery O2 Flow Rate FiO2 09/26/24 13:12 82 19 96/55 09/26/24 08:30 97.7 99 97.7 09/26/24 08:00 Room Air* 0 21 Intake/Output Intake and Output 09/26/24 07:00 Intake Total 1730 ml Output Total 615 ml Balance 1115 ml Intake Oral 1730 ml Output Urine Total 615 ml General Appearance: Alert, Oriented X3, Cooperative, No acute distress Lungs: Clear to auscultation, Normal air movement Abdomen: Normal bowel sounds, Soft, No tenderness Extremities: Other (2+ edema bilaterally in lower extremities) Medications Current Medications Medications Dose Ordered Sig/Anat Route Start Time Stop Time Status Last Admin Dose Admin Apixaban 5 mg BID PO 09/19/24 22:00 09/26/24 09:43 5 MG Aspirin 81 mg DAILY PO 09/20/24 10:00 09/26/24 09:42 81 MG Atorvastatin Calcium 20 mg HS PO 09/19/24 22:00 09/25/24 20:50 20 MG Carvedilol 3.125 mg BID PO 09/19/24 22:00 09/26/24 09:44 3.125 MG Empaglifozin 10 mg DAILY PO 09/20/24 10:00 09/26/24 09:45 10 MG Lisinopril 10 mg DAILY PO 09/20/24 10:00 09/26/24 09:44 10 MG Spironolactone 25 mg BID PO 09/19/24 22:00 09/26/24 09:43 25 MG Pantoprazole Sodium 40 mg BID IV 09/19/24 22:00 09/26/24 09:42 40 MG Bumetanide 2 mg BIDD IV 09/20/24 06:00 09/26/24 05:52 2 MG Dextrose 50 ml UD PRN IV 09/19/24 14:45 Cancel Nitroglycerin 0.4 mg Q5MINP PRN SL 09/19/24 14:45 Ondansetron HCl 4 mg Q4HPRN PRN IV 09/19/24 21:15 09/26/24 02:42 4 MG Acetaminophen/ Hydrocodone Bitart 1 tab Q6HPRN PRN PO 09/20/24 06:45 09/25/24 17:39 1 TAB Morphine Sulfate 2 mg Q4HPRN PRN IV 09/20/24 14:45 09/26/24 13:12 2 MG Laboratory Results Laboratory Tests 09/25/24 11:47 Urinalysis Test 09/20/24 01:30 Urine Color Light-yellow (Yellow) Urine Clarity Clear (Clear) Urine pH 5.5 (5.0-9.0) Urine Specific [place] 1.006 (1.001-1.035) Urine Protein Negative (Negative) Urine Ketones Negative (Negative) Urine Blood Negative /uL (Negative) Urine Nitrite Negative (Negative) Urine Bilirubin Negative (Negative) Urine Urobilinogen Normal mg/dL (Negative) Urine Leukocyte Esterase Negative /uL (Negative) Urine RBC None seen /hpf (0 - 3) Urine Microscopic WBC < 1 /HPF (0-3) Urine Squamous Epithelial Cells None seen /hpf (<5) Urine Bacteria None seen /hpf (None Seen) Urine Glucose Normal mg/dL (Normal) Microbiology Microbiology Date/Time Source Procedure Growth Status 09/20/24 18:26 Ascities Fluid Gram Stain - Final Resulted 09/20/24 18:26 Ascities Fluid Body Fluid Culture - Preliminary Resulted Assessment/Plan Assessment/Plan Acute on chronic congestive heart failure exacerbation , systolic Nonischemic cardiomyopathy, severe, most likely drug-induced Ascites Liver cirrhosis Type 2 diabetes Positive for amphetamine Polysubstance abuse Homeless Morbid obesity Iron deficiency anemia Chronic anemia Hyponatremia Hypothyroidism Plan Bumex IV Aldactone 25 mg twice a day IV Protonix Lisinopril Jardiance Coreg Lipitor Aspirin Eliquis Zosyn Cardiac consult manager social services consult for homelessness Monitor closely and the rest of the management will depend on the hospital course 09/21/2024: Discontinue Zosyn, no infection Continue diuresis with Bumex and Aldactone Monitor closely Discharge planning for tomorrow 09/22/2024: Continue diuresis with Bumex and Aldactone Fluid restriction supervisor shed workers consult for helping with the homeless less He says his friend will come back tomorrow evening and he can go with him possibly tomorrow 09/23/2024: Continue current management pending him finding living arrangements He says his friend will come tomorrow evening Continue Eliquis and aspirin and Lipitor and Bumex and Coreg and Jardiance and lisinopril and Aldactone 09/24/24: Continue diuresis 09/25/2024 continue with diuresis pt has 4+ pitting edema scrotal edema is still significant 09/26/2024 pt needs to have at least net negative 3-4 liters daily significant swelling increase bumex to TID and adding metolazone (see response in 24 hours) if goal is reach, continue with 5-10mg BID Plan discussed with: Patient My Orders Orders - PEEWEE MEDINA DO Procedure Category Date Status Time Bumetanide Injection PHA 09/26/24 Verified (Bumex Injection) 13:30 Metolazone (Zaroxolyn) PHA 09/26/24 Verified 13:30 Date of Service: Sep 26, 2024 Billing Provider: PEEWEE MEDINA DO Common Visit Codes: [id number] INP/OBS CARE(HIGH) PEEWEE MEDINA DO Sep 26, 2024 13:26
[2024-09-26] MEDS: metOLazone 5 MG TAB PO ONE (13:30)
[2024-09-26] MEDS: BUMETANIDE 2.5mg/10ml (0.25 mg/ml) INJ IV SCH (13:30)
[2024-09-27] VITALS (8 sets, daily range): BP systolic 92–112; BP diastolic 53–70; PULSE 77–91; RESP 16–20; TEMP 97.5–98.7; O2SAT 93–98
[2024-09-27 11:17] LABS: Hepatitis A Ab IgM Negative; Hepatitis B Core IgM Negative (Negative); Hepatitis B Surface Antigen Negative (Negative); Hepatitis C Antibody Negative (Negative)
--- NOTE | 2024-09-27 11:55 | DVHPN2 ---
Subjective No new complaints Still has significant edema in his legs and scrotum Reviewed: Care Plan, H&P, Labs, Medications, Previous Orders, Radiology Changes from previous H/P or p: Changes General: Per HPI Eyes: No Pain, No Vision change, No Conjunctivae inflammation, No Eyelid inflammation, No Other, No Redness ENT: No Ear pain, No Ear discharge, No Nose pain, No Nose discharge, No Nose congestion, No Mouth pain, No Mouth swelling, No Throat pain, No Throat swelling, No Other Cardiovascular: No Chest Pain, No Palpitations, No Orthopnea, No Paroxysmal Noc. Dyspnea, No Edema, No Lt Headedness, No Other Respiratory: No Cough, No Dry, No Shortness of breath, No SOB with excertion, No Wheezing, No Hemoptysis, No Pleuritic Pain, No Sputum, No Other Gastrointestinal: No Nausea, No Vomiting; Abdominal Pain; No Diarrhea, No Constipation, No Melena, No Hematochezia, No Other Genitourinary: No Dysuria, No Frequency, No Incontinence, No Hematuria, No Retention, No Other Musculoskeletal: No other, No neck pain, No shoulder pain, No arm pain, No back pain, No hand pain, No leg pain, No foot pain Skin: No Rash, No Lesions, No Jaundice, No Bruising, No Other Objective Vitals Vital Signs Date Time Temp Pulse Resp B/P (MAP) Pulse Ox O2 Delivery O2 Flow Rate FiO2 09/27/24 09:53 80 18 91/51 09/27/24 08:32 97.8 96 97.8 09/26/24 20:00 Room Air* 0 21 Intake/Output Intake and Output 09/27/24 07:00 Intake Total 2500 ml Output Total 126 ml Balance 2374 ml Intake Oral 2500 ml Output Urine Total 125 ml Stool Total 1 ml # Voids 5 General Appearance: Alert, Oriented X3, Cooperative, No acute distress Lungs: Clear to auscultation, Normal air movement Abdomen: Normal bowel sounds, Soft, No tenderness Extremities: Other (2+ edema bilaterally in lower extremities) Medications Current Medications Medications Dose Ordered Sig/Anat Route Start Time Stop Time Status Last Admin Dose Admin Apixaban 5 mg BID PO 09/19/24 22:00 09/27/24 10:00 5 MG Aspirin 81 mg DAILY PO 09/20/24 10:00 09/27/24 10:00 81 MG Atorvastatin Calcium 20 mg HS PO 09/19/24 22:00 09/26/24 22:00 20 MG Carvedilol 3.125 mg BID PO 09/19/24 22:00 09/26/24 22:00 3.125 MG Empaglifozin 10 mg DAILY PO 09/20/24 10:00 09/27/24 10:00 10 MG Lisinopril 10 mg DAILY PO 09/20/24 10:00 09/26/24 09:44 10 MG Spironolactone 25 mg BID PO 09/19/24 22:00 09/26/24 22:08 25 MG Pantoprazole Sodium 40 mg BID IV 09/19/24 22:00 09/27/24 10:00 40 MG Dextrose 50 ml UD PRN IV 09/19/24 14:45 Cancel Nitroglycerin 0.4 mg Q5MINP PRN SL 09/19/24 14:45 Ondansetron HCl 4 mg Q4HPRN PRN IV 09/19/24 21:15 09/26/24 18:54 4 MG Acetaminophen/ Hydrocodone Bitart 1 tab Q6HPRN PRN PO 09/20/24 06:45 09/27/24 10:00 1 TAB Morphine Sulfate 2 mg Q4HPRN PRN IV 09/20/24 14:45 09/27/24 08:22 2 MG Bumetanide 2 mg TID IV 09/26/24 13:30 Laboratory Results Laboratory Tests 09/25/24 11:47 Urinalysis Test 09/20/24 01:30 Urine Color Light-yellow (Yellow) Urine Clarity Clear (Clear) Urine pH 5.5 (5.0-9.0) Urine Specific [place] 1.006 (1.001-1.035) Urine Protein Negative (Negative) Urine Ketones Negative (Negative) Urine Blood Negative /uL (Negative) Urine Nitrite Negative (Negative) Urine Bilirubin Negative (Negative) Urine Urobilinogen Normal mg/dL (Negative) Urine Leukocyte Esterase Negative /uL (Negative) Urine RBC None seen /hpf (0 - 3) Urine Microscopic WBC < 1 /HPF (0-3) Urine Squamous Epithelial Cells None seen /hpf (<5) Urine Bacteria None seen /hpf (None Seen) Urine Glucose Normal mg/dL (Normal) Microbiology Microbiology Date/Time Source Procedure Growth Status 09/20/24 18:26 Ascities Fluid Gram Stain - Final Complete 09/20/24 18:26 Ascities Fluid Body Fluid Culture - Final Complete Assessment/Plan Assessment/Plan Acute on chronic congestive heart failure exacerbation , systolic Nonischemic cardiomyopathy, severe, most likely drug-induced Ascites Liver cirrhosis Type 2 diabetes Positive for amphetamine Polysubstance abuse Homeless Morbid obesity Iron deficiency anemia Chronic anemia Hyponatremia Hypothyroidism Plan Bumex IV 2 mg twice a day Aldactone 25 mg twice a day IV Protonix Lisinopril Jardiance Coreg Lipitor Aspirin Eliquis Zosyn Cardiac consult application services manager consult for homelessness Monitor closely and the rest of the management will depend on the hospital course 09/21/2024: Discontinue Zosyn, no infection Continue diuresis with Bumex and Aldactone Monitor closely Discharge planning for tomorrow 09/22/2024: Continue diuresis with Bumex and Aldactone Fluid restriction buffing line set up worker consult for helping with the homeless less He says his friend will come back tomorrow evening and he can go with him possibly tomorrow 09/23/2024: Continue current management pending him finding living arrangements He says his friend will come tomorrow evening Continue Eliquis and aspirin and Lipitor and Bumex and Coreg and Jardiance and lisinopril and Aldactone 09/24/24: Continue diuresis 09/27/2024: Continue Bumex IV We will stop the morphine since it is making his blood pressure low and it is making giving him the Bumex harder Continue [place] for pain Order paracentesis by Radiology Fluid restriction Hold Coreg and lisinopril for now since giving him those 2 medications is actually making his blood pressure too low to be able to give him the Bumex which he needs more at this time Plan discussed with: Patient Date of Service: Sep 27, 2024 Billing Provider: ANN-MARIE RIOJAS MD Common Visit Codes: NOT BILLABLE ANN-MARIE RIOJAS MD Sep 27, 2024 11:55
--- NOTE | 2024-09-27 13:28 | DVH ---
ULTRASOUND ABDOMEN limited, 4 QUADRANTS INDICATION: FLUID CHECK FOR POSSIBLE PARACENTESIS Evaluate for ascites. TECHNIQUE: The four quadrants of the abdomen were scanned in potter-scale to assess for the presence of ascites. N o solid organ assessment was performed. FINDINGS: Small volume ascites, too small for paracentesis. IMPRESSIONS: 1. Small volume ascites, too small for paracentesis.
[2024-09-27] MEDS: BUMETANIDE 2.5mg/10ml (0.25 mg/ml) INJ IV SCH (13:57)
[2024-09-28] VITALS (7 sets, daily range): BP systolic 95–121; BP diastolic 53–81; PULSE 74–108; RESP 18; TEMP 36.6; O2SAT 96–98
[2024-09-28 07:44] LABS: Anion Gap 8 (5-15); Carbon Dioxide 25 mmol/L (20-31); Chloride 102 mmol/L (98-107); Potassium 4.4 mmol/L (3.5-5.1)
[2024-09-28 07:45] LABS: Calcium 8.8 mg/dL (8.7-10.4)
[2024-09-28 07:50] LABS: Blood Urea Nitrogen 21 mg/dL (9-23); Glucose 90 mg/dL (74-106)
[2024-09-28 07:55] LABS: Sodium 135 mmol/L (136-145)
--- NOTE | 2024-09-28 11:58 | DVHPN2 ---
Subjective Feels better Edema is less Reviewed: Care Plan, H&P, Labs, Medications, Previous Orders, Radiology Changes from previous H/P or p: Changes General: Per HPI Eyes: No Pain, No Vision change, No Conjunctivae inflammation, No Eyelid inflammation, No Other, No Redness ENT: No Ear pain, No Ear discharge, No Nose pain, No Nose discharge, No Nose congestion, No Mouth pain, No Mouth swelling, No Throat pain, No Throat swelling, No Other Cardiovascular: No Chest Pain, No Palpitations, No Orthopnea, No Paroxysmal Noc. Dyspnea, No Edema, No Lt Headedness, No Other Respiratory: No Cough, No Dry, No Shortness of breath, No SOB with excertion, No Wheezing, No Hemoptysis, No Pleuritic Pain, No Sputum, No Other Gastrointestinal: No Nausea, No Vomiting; Abdominal Pain; No Diarrhea, No Constipation, No Melena, No Hematochezia, No Other Genitourinary: No Dysuria, No Frequency, No Incontinence, No Hematuria, No Retention, No Other Musculoskeletal: No other, No neck pain, No shoulder pain, No arm pain, No back pain, No hand pain, No leg pain, No foot pain Skin: No Rash, No Lesions, No Jaundice, No Bruising, No Other Objective Vitals Vital Signs Date Time Temp Pulse Resp B/P (MAP) Pulse Ox O2 Delivery O2 Flow Rate FiO2 09/28/24 09:06 97.7 74 18 100/64 (76) 98 97.7 09/28/24 08:14 Room Air* 2 N/A Nasal Cannula* Intake/Output Intake and Output 09/28/24 07:00 Intake Total 2775 ml Output Total 6640 ml Balance -3865 ml Intake Oral 2775 ml Output Urine Total 6640 ml # Bowel Movements 1 General Appearance: Alert, Oriented X3, Cooperative, No acute distress Lungs: Clear to auscultation, Normal air movement Abdomen: Normal bowel sounds, Soft, No tenderness Extremities: Other (2+ edema bilaterally in lower extremities) Medications Current Medications Medications Dose Ordered Sig/Anat Route Start Time Stop Time Status Last Admin Dose Admin Apixaban 5 mg BID PO 09/19/24 22:00 09/28/24 09:39 5 MG Aspirin 81 mg DAILY PO 09/20/24 10:00 09/28/24 09:39 81 MG Atorvastatin Calcium 20 mg HS PO 09/19/24 22:00 09/27/24 21:22 20 MG Empaglifozin 10 mg DAILY PO 09/20/24 10:00 09/28/24 09:38 10 MG Spironolactone 25 mg BID PO 09/19/24 22:00 09/28/24 09:39 25 MG Pantoprazole Sodium 40 mg BID IV 09/19/24 22:00 09/28/24 09:39 40 MG Dextrose 50 ml UD PRN IV 09/19/24 14:45 Cancel Nitroglycerin 0.4 mg Q5MINP PRN SL 09/19/24 14:45 Ondansetron HCl 4 mg Q4HPRN PRN IV 09/19/24 21:15 09/26/24 18:54 4 MG Acetaminophen/ Hydrocodone Bitart 1 tab Q6HPRN PRN PO 09/20/24 06:45 09/28/24 05:51 1 TAB Morphine Sulfate 2 mg Q4HPRN PRN IV 09/20/24 14:45 09/27/24 08:22 2 MG Bumetanide 2 mg TID IV 09/27/24 14:00 09/27/24 21:23 2 MG Laboratory Results Laboratory Tests 09/25/24 11:47 09/28/24 05:54 Chemistry Test 09/28/24 05:54 Calcium Level 8.8 mg/dL (8.7-10.4) Urinalysis Test 09/20/24 01:30 Urine Color Light-yellow (Yellow) Urine Clarity Clear (Clear) Urine pH 5.5 (5.0-9.0) Urine Specific [place] 1.006 (1.001-1.035) Urine Protein Negative (Negative) Urine Ketones Negative (Negative) Urine Blood Negative /uL (Negative) Urine Nitrite Negative (Negative) Urine Bilirubin Negative (Negative) Urine Urobilinogen Normal mg/dL (Negative) Urine Leukocyte Esterase Negative /uL (Negative) Urine RBC None seen /hpf (0 - 3) Urine Microscopic WBC < 1 /HPF (0-3) Urine Squamous Epithelial Cells None seen /hpf (<5) Urine Bacteria None seen /hpf (None Seen) Urine Glucose Normal mg/dL (Normal) Microbiology Microbiology Date/Time Source Procedure Growth Status 09/20/24 18:26 Ascities Fluid Gram Stain - Final Complete 09/20/24 18:26 Ascities Fluid Body Fluid Culture - Final Complete Assessment/Plan Assessment/Plan Acute on chronic congestive heart failure exacerbation , systolic Nonischemic cardiomyopathy, severe, most likely drug-induced Ascites Liver cirrhosis Type 2 diabetes Positive for amphetamine Polysubstance abuse Homeless Morbid obesity Iron deficiency anemia Chronic anemia Hyponatremia Hypothyroidism Plan Bumex IV 2 mg twice a day Aldactone 25 mg twice a day IV Protonix Lisinopril Jardiance Coreg Lipitor Aspirin Eliquis Zosyn Cardiac consult library services dean consult for homelessness Monitor closely and the rest of the management will depend on the hospital course 09/21/2024: Discontinue Zosyn, no infection Continue diuresis with Bumex and Aldactone Monitor closely Discharge planning for tomorrow 09/22/2024: Continue diuresis with Bumex and Aldactone Fluid restriction company laundry worker consult for helping with the homeless less He says his friend will come back tomorrow evening and he can go with him possibly tomorrow 09/23/2024: Continue current management pending him finding living arrangements He says his friend will come tomorrow evening Continue Eliquis and aspirin and Lipitor and Bumex and Coreg and Jardiance and lisinopril and Aldactone 09/24/24: Continue diuresis 09/27/2024: Continue Bumex IV We will stop the morphine since it is making his blood pressure low and it is making giving him the Bumex harder Continue [place] for pain Order paracentesis by Radiology Fluid restriction Hold Coreg and lisinopril for now since giving him those 2 medications is actually making his blood pressure too low to be able to give him the Bumex which he needs more at this time 09/28/2024: Continue IV Bumex Continue spironolactone Continue Eliquis We checked his ascites, he does not have enough fluid for paracentesis, he understands Plan discussed with: Patient My Orders Orders - ANN-MARIE RIOJAS MD Procedure Category Date Status Time Bumetanide Injection PHA 09/27/24 In Process (Bumex Injection) 14:00 Date of Service: Sep 28, 2024 Billing Provider: ANN-MARIE RIOJAS MD Common Visit Codes: [id number] INP/OBS CARE(HIGH) ANN-MARIE RIOJAS MD Sep 28, 2024 11:58
[2024-09-28] MEDS ORDERED: BUM1T PO (15:25)
[2024-09-28] MEDS ORDERED: APIX5TAB PO (15:25)
[2024-09-28] MEDS ORDERED: LISI10TA34 PO (15:25)
[2024-09-28] MEDS ORDERED: SPIR25TA PO (15:25)
[2024-09-28] MEDS ORDERED: CARV-214 OR (15:25)
[2024-09-28] MEDS ORDERED: EMPA1TAB PO (15:25)
[2024-09-28] MEDS ORDERED: ATOR20TA50 PO (15:27)
[2024-09-28] MEDS ORDERED: ASPI81TA10 PO (15:27)
--- NOTE | 2024-09-28 15:29 | DVHDS2 ---
Discharge Summary Date of Admission Sep 19, 2024 at 14:32 Date of Discharge: Sep 28, 2024 Labs/Diagnostic Data: Laboratory Results Test 09/28/24 05:54 09/25/24 11:47 09/25/24 11:01 09/23/24 03:57 Sodium Level 135 mmol/L (136-145) Potassium Level 4.4 mmol/L (3.5-5.1) Chloride Level 102 mmol/L (98-107) Carbon Dioxide Level 25 mmol/L (20-31) Anion Gap 8 (5-15) Blood Urea Nitrogen 21 mg/dL (9-23) Creatinine 1.05 mg/dL (0.700-1.30) Glomerular Filtration Rate Calc 92 mL/min (>90) BUN/Creatinine Ratio 20.0 (10.0-20.0) Serum Glucose 90 mg/dL (74-106) Calcium Level 8.8 mg/dL (8.7-10.4) White Blood Count 6.8 10^3/uL (4.4-10.8) Red Blood Count 4.12 10^6/uL (4.5-5.90) Hemoglobin 10.4 g/dL (13.5-17.5) Hematocrit 32.7 % (41.0-53.0) Mean Corpuscular Volume 79.3 fL (80.0-100.0) Mean Corpuscular Hemoglobin 25.2 pg (28.0-32.0) Mean Corpuscular Hemoglobin Concent 31.7 g/dL (32.0-36.0) Red Cell Distribution Width 22.0 % (11.8-14.3) Platelet Count 244 10^3/uL (140-450) Mean Platelet Volume 8.0 fL (6.9-10.8) Neutrophils (%) (Auto) 64.4 % (37.0-80.0) Lymphocytes (%) (Auto) 16.7 % (10.0-50.0) Monocytes (%) (Auto) 10.5 % (0.0-12.0) Eosinophils (%) (Auto) 7.2 % (0.0-7.0) Basophils (%) (Auto) 1.2 % (0.0-2.0) Neutrophils # (Auto) 4.4 10 ^3/uL (1.6-8.6) Lymphocytes # (Auto) 1.1 10 ^3/uL (0.4-5.4) Monocytes # (Auto) 0.7 10 ^3/uL (0-1.3) Eosinophils # (Auto) 0.5 10 ^3/uL (0-0.8) Basophils # (Auto) 0.1 10 ^3/uL (0-0.2) Nucleated Red Blood Cells 0.1 % Platelet Estimate Adequate Anisocytosis (manual) Slight Ovalocytes Few [place] Cells Few Hemoglobin A1c 5.6 % A1C (<5.7) Total Bilirubin 1.3 mg/dL (0.2-1.0) Direct Bilirubin 0.8 mg/dL (<0.3) Aspartate Amino Transferase (AST) 24 U/L (13-40) Alanine Aminotransferase (ALT) 11 U/L (7-40) Alkaline Phosphatase 89 U/L (46-116) Total Protein 6.1 g/dL (5.7-8.2) Albumin 3.4 g/dL (3.2-4.8) Hepatitis A IgM Antibody Negative Hepatitis B Surface Antigen Negative (Negative) Hepatitis B Core IgM Antibody Negative (Negative) Hepatitis C Antibody Negative (Negative) POC Glucose 119 mg/dl (70-106) Magnesium Level 1.9 mg/dL (1.6-2.6) Test 09/20/24 18:26 09/20/24 05:42 09/20/24 01:30 09/19/24 13:34 Body Fluid Source Peritoneal fluid Body Fluid pH 8.0 Body Fluid WBC (Manual) 175 CUMM (0-200) Body Fluid RBC (Manual) 26913 CUMM (0-2000) Body Fluid Mononuclear Cells 74 % Body Fluid Polymorphonuclear Cells 26 % (0-25) Body Fluid Glucose 114 mg/dL (.) Body Fluid Total Protein 3.6 g/dL (.) Triglycerides Level 72 mg/dL (< 150) Cholesterol Level 76 mg/dL (< 200) LDL Cholesterol 55 mg/dL (< 100) HDL Cholesterol 13 mg/dL (40-59) Urine Color Light-yellow (Yellow) Urine Clarity Clear (Clear) Urine pH 5.5 (5.0-9.0) Urine Specific [place] 1.006 (1.001-1.035) Urine Protein Negative (Negative) Urine Ketones Negative (Negative) Urine Blood Negative /uL (Negative) Urine Nitrite Negative (Negative) Urine Bilirubin Negative (Negative) Urine Urobilinogen Normal mg/dL (Negative) Urine Leukocyte Esterase Negative /uL (Negative) Urine RBC None seen /hpf (0 - 3) Urine Microscopic WBC < 1 /HPF (0-3) Urine Squamous Epithelial Cells None seen /hpf (<5) Urine Bacteria None seen /hpf (None Seen) Urine Glucose Normal mg/dL (Normal) Urine Opiates Screen Neg (NEGATIVE) Urine Fentanyl Screen Neg (NEGATIVE) Urine Barbiturates Screen Neg (NEGATIVE) Urine Phencyclidine Screen Neg (NEGATIVE) Urine Amphetamines Screen Pos (NEGATIVE) Urine Benzodiazepines Screen Neg (NEGATIVE) Urine Cocaine Screen Neg (NEGATIVE) Urine Cannabinoids Screen Neg (NEGATIVE) Prothrombin Time 14.7 sec (9.3-11.8) Prothrombin Time INR 1.44 (0.9-1.15) Test 09/19/24 10:41 Troponin I High Sensitivity 22 ng/L (</=54) B-Type Natriuretic Peptide 1560.39 pg/mL (0-100) Thyroid Stimulating Hormone (TSH) 10.89 uIU/mL (0.55-4.78) Other Laboratory Tests 09/28/24 05:54 09/25/24 11:47 Brief Hx & Hospital Course: Diagnoses: Acute on chronic congestive heart failure exacerbation , systolic Nonischemic cardiomyopathy, severe, most likely drug-induced Ascites Liver cirrhosis Type 2 diabetes Positive for amphetamine Polysubstance abuse Homeless Morbid obesity Iron deficiency anemia Chronic anemia Hyponatremia Hypothyroidism 39-year-old male who was here for heart failure with fluid overload and was diuresed He has end-stage cardiomyopathy He also said he was homeless, apparently he lived with a friend but that friend was out of town I saw him this morning and we decided to keep him 1 more day for more diuresis on Bumex IV however he called now and he said he would like to go home today because his friend is here right now The patient is stable He is on room air He can be discharged on p.o. Bumex and the rest of his GDMT medications Condition at Discharge: Stable Final Diagnosis/Problems List Acute on chronic congestive heart failure exacerbation , systolic Nonischemic cardiomyopathy, severe, most likely drug-induced Ascites Liver cirrhosis Type 2 diabetes Positive for amphetamine Polysubstance abuse Homeless Morbid obesity Iron deficiency anemia Chronic anemia Hyponatremia Hypothyroidism Discharge Disposition: Home SNF Discharge Will this Physician continue t: No Discharge Statement: "Patient was advised to return to the ER or call 911 if any headaches, dizziness, shortness of breath, chest pain, abdominal pain, bleeding, fevers, or worsening of medical condition. Patient was counseled about treatment plan, medications, possible side effects, patientverbalized understanding. All questions were answered to the best of my ability. This discharge took greater then 30 minutes in planning, reviewing documentation, counseling the patient, and discussing with other team members." ASSESSMENT ASSESSMENT Assessment Date of Service: Sep 28, 2024 Billing Provider: ANN-MARIE RIOJAS MD Common Visit Codes: [id number] DISCH DAY >30min ANN-MARIE RIOJAS MD Sep 28, 2024 15:29
--- NOTE | 2024-09-29 13:37 | PEER ---
Peer to Peer Review Time DATE: 09/29/24 TIME: 13:35 Review and Recommendations: Spoke with Dr. Lino. Approved for inpatient. LUIS SUÁREZ MD Sep 29, 2024 13:36
== END 2024-09-28 18:07 | disposition home or self-care (01) | DRG 194 ==
LOC: ER 09:23 → OVERFLOW 14:32 → TELE-WESTW 17:07
PROVIDERS: ADMIT Internal Medicine Geriatric Medicine; ATTEND Internal Medicine Geriatric Medicine
PROC: 0W9G3ZZ Drainage of Peritoneal Cavity, Percutaneous Approach (ICD-10-PCS; principal; 2024-09-20)
DX: I13.0 Hypertensive heart and chronic kidney disease with heart failure and stage 1 through stage 4 chronic kidney disease, or unspecified chronic kidney disease (principal); R18.8 Other ascites; I42.7 Cardiomyopathy due to drug and external agent; E87.1 Hypo-osmolality and hyponatremia; E11.22 Type 2 diabetes mellitus with diabetic chronic kidney disease; D50.9 Iron deficiency anemia, unspecified; I50.43 Acute on chronic combined systolic (congestive) and diastolic (congestive) heart failure; Z20.822 Contact with and (suspected) exposure to COVID-19; K74.60 Unspecified cirrhosis of liver; R00.0 Tachycardia, unspecified; F15.90 Other stimulant use, unspecified, uncomplicated; I08.1 Rheumatic disorders of both mitral and tricuspid valves; F19.10 Other psychoactive substance abuse, uncomplicated; E66.01 Morbid (severe) obesity due to excess calories; N18.9 Chronic kidney disease, unspecified; E03.9 Hypothyroidism, unspecified; Z82.49 Family history of ischemic heart disease and other diseases of the circulatory system; Z59.00 Homelessness unspecified; Z83.3 Family history of diabetes mellitus; Z90.49 Acquired absence of other specified parts of digestive tract; Z91.128 Patient's intentional underdosing of medication regimen for other reason; Z68.36 Body mass index [BMI] 36.0-36.9, adult; Z79.82 Long term (current) use of aspirin; Z79.899 Other long term (current) drug therapy
CPT/HCPCS: 36415; 49083; 71045; 74176; 76700; 76705; 76870; 76942; 80048; 80053; 80061; 80074; 80076; 80307; 81001; 82962; 83036; 83735; 83880; 83986; 84443; 84484; 85025; 85610; 87205; 89051; 93005; 96374; 99291; G0378; J1815; J2405; J2470; J2543